=== PATIENT | male | born 1960 | race Caucasian/White ===

== ENCOUNTER 2016-05-22 12:41 | Inpatient (IN) ==
[2016-05-22] MEDS ORDERED: methylPREDNISolone 125 MG/2 ML VIAL IVP ONE (13:00)
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
[2016-05-22 13:18] LABS: ABG Base Excess 3.8 mEq/L (-2.0 to 3.0); ABG HCO3 30.2 mEQ/L (21-27); ABG Oxygen Saturation 97 % (95-98); ABG PCO2 51 mmHg (35-45); ABG PH 7.38 pH Units (7.32-7.45); ABG PO2 93 mmHg (85-104); ABG TCO2 31.8 mEq/L (20-26)
[2016-05-22 13:19] LABS: Blood Gas FiO2 28 %
[2016-05-22] MEDS: Ipratropium/Albuterol Neb 3 ML IH ONE ×2 (13:19→13:21)
[2016-05-22 13:49] LABS: Basophils % 0.1 %; Eosinophils % 0.2 %; Hematocrit 45.8 % (37.5-50.1); Hemoglobin 15.9 g/dL (12.9-16.9); Immature Granulocytes % 0.3 % (0-4); Immature Platelets 3.8 % (1.1-6.1); Lymphocytes # 0.5 K/mcL (0.6-4.6); Lymphocytes % 5.5 %; Mean Corpuscular HGB Conc 34.7 g/dL (31.6-35.5); Mean Corpuscular Hemoglobin 31.3 pg (28.0-33.3); Mean Corpuscular Volume 90.2 fL (83.0-100.0); Mean Platelet Volume 10.5 fL (9.4-12.4); Monocytes # 0.8 K/mcL (0.0-1.3); Neutrophils # 8.4 K/mcL (1.6-8.9); Platelet Count 138 K/mcL (140-400); Red Blood Count 5.08 M/mcL (4.19-5.50); Red Cell Distribution Width 13.5 % (11.5-14.5); Segmented Neutrophils % 85.9 %
[2016-05-22 13:54] LABS: INR 1.1; Prothrombin Time 12.4 Seconds (9.4-12.1)
[2016-05-22 14:01] LABS: BUN/Creatinine Ratio 16 (6-26); Blood Urea Nitrogen 14 mg/dL (8-26); Calcium 9.2 mg/dL (8.6-10.8); Carbon Dioxide 24 mEq/L (19-29); Chloride 103 mEq/L (98-109); Glucose 114 mg/dL (70-99); Osmolality,Calculated 289 (280-300); Potassium 4.1 mEq/L (3.5-4.5); Sodium 139 mEq/L (136-145); eGFR For African Americans > 60 (> 60); eGFR For Non-African Americans > 60 (> 60)
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
[2016-05-22] MEDS ORDERED: Naloxone 0.4 MG/ML INJ IVP PRN ×2 (17:54→17:58)
[2016-05-22] MEDS ORDERED: Ondansetron ODT 4 MG TAB.RAPDIS SL PRN (17:58)
[2016-05-22] MEDS ORDERED: 0.9 % Sodium Chloride 1,000 ML IVC SCH ×2 (18:00→18:55)
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
[2016-05-22] MEDS: methylPREDNISolone 125 MG/2 ML VIAL IVP SCH (19:42)
[2016-05-22] MEDS: *HR* OxyCODONE Immed Rel 5 MG TABLET PO PRN (19:42)
[2016-05-22] MEDS: Azithromycin 500 MG in D5% in Water 250 ML IVPB SCH (19:43)
[2016-05-22] MEDS: Ipratropium/Albuterol Neb 3 ML IH SCH ×2 (20:57→23:52)
[2016-05-22] MEDS ORDERED: MethylPREDNISolone 40 MG/ML VIAL IVP SCH (21:00)
[2016-05-22] MEDS: *HR* Heparin 5,000 UNIT/ML VIAL SQ SCH (23:41)
[2016-05-23] MEDS: Ipratropium/Albuterol Neb 3 ML IH SCH ×5 (03:58→21:42)
[2016-05-23] MEDS: *HR* OxyCODONE Immed Rel 5 MG TABLET PO PRN ×4 (04:41→23:21)
[2016-05-23] MEDS: methylPREDNISolone 125 MG/2 ML VIAL IVP SCH ×3 (04:41→23:08)
[2016-05-23 05:58] LABS: Hematocrit 46.3 % (37.5-50.1); Hemoglobin 15.9 g/dL (12.9-16.9); Immature Granulocytes % 0.5 % (0-4); Lymphocytes # 0.4 K/mcL (0.6-4.6); Lymphocytes % 4.5 %; Mean Corpuscular HGB Conc 34.3 g/dL (31.6-35.5); Mean Corpuscular Volume 90.3 fL (83.0-100.0); Mean Platelet Volume 10.6 fL (9.4-12.4); Monocytes # 0.2 K/mcL (0.0-1.3); Monocytes % 2.5 %; Neutrophils # 8.9 K/mcL (1.6-8.9); Platelet Count 152 K/mcL (140-400); Red Blood Count 5.13 M/mcL (4.19-5.50); Red Cell Distribution Width 13.6 % (11.5-14.5); Segmented Neutrophils % 92.5 %
[2016-05-23 06:06] LABS: BUN/Creatinine Ratio 20 (6-26); Blood Urea Nitrogen 17 mg/dL (8-26); Calcium 9.4 mg/dL (8.6-10.8); Carbon Dioxide 25 mEq/L (19-29); Chloride 105 mEq/L (98-109); Chol/HDL Ratio 4.5 (0-4.9); Cholesterol 213 mg/dL (< 200); Glucose 153 mg/dL (70-99); HDL Cholesterol 47 mg/dL (40-59); LDL Cholesterol,Calculated 144 mg/dL (0-99); Magnesium 2.3 mg/dL (1.6-2.6); Osmolality,Calculated 291 (280-300); Potassium 4.4 mEq/L (3.5-4.5); Sodium 138 mEq/L (136-145); Triglycerides 109 mg/dL (< 150); eGFR For African Americans > 60 (> 60); eGFR For Non-African Americans > 60 (> 60)
--- NOTE | 2016-05-23 08:28 | Event Note ---
Date of Encounter: 05/23/16 Time of Encounter: 08:26 I examined this patient and my medical decision-making was reviewed with Dr. Breaux. I agree with the documented findings, disposition and treatment plan as described except to the extent set forth below. 54-year-old male admitted for COPD exacerbation yesterday evening. Placed on BiPAP, steroids and antibiotics. Today, patient stated that his shortness of breath is mildly better. He continues to report cough, sputum production or wheezing. Examination reveals diffuse wheezing bilaterally. Crepitations in the right lower lung. Scar over the right infrascapular region. Obese abdomen but nontender to palpation. 1. COPD exacerbation-continue intravenous steroids, BiPAP support around the clock, antibiotics and breathing treatments [id number]. Mucolytics. 2. Acute on chronic hypoxic and hypercapnic respiratory failure-oxygen support and BiPAP support for now. Due to COPD exacerbation. Treatment as above. 3. Obesity 4. Tobacco abuse 5. Hypertension 6. Dysrhythmia 7. GERD Patient is high risk due to COPD exacerbation and the need for BiPAP support. Patient is a risk of worsening respiratory failure that may require intervention and mechanical ventilation. CHINTAN Esqueda
[2016-05-23] MEDS ORDERED: amLODIPine 5 MG TABLET PO SCH (09:00)
[2016-05-23] MEDS: *HR* Heparin 5,000 UNIT/ML VIAL SQ SCH ×2 (10:19→17:14)
[2016-05-23] MEDS: Gabapentin 300 MG CAPSULE PO SCH (10:19)
[2016-05-23] MEDS: Furosemide 40 MG/4 ML VIAL IVP SCH ×2 (13:55→17:14)
[2016-05-23 15:44] LABS: Adenovirus Not Detected (Not Detect); Bordetella Pertussis Not Detected (Not Detect); Chlamydophila pneumoniae Not Detected (Not Detect); Coronavirus 229E Not Detected (Not Detect); Coronavirus HKU1 Not Detected (Not Detect); Coronavirus NL63 Not Detected (Not Detect); Coronavirus OC43 Not Detected (Not Detect); Human Metapneumovirus Not Detected (Not Detect); Human Rhinovirus/Enterovirus ***DETECTED*** (Not Detect); Influenza A Subtype 2009 H1 Not Detected (Not Detect); Influenza A Untypeable Not Detected (Not Detect); Influenza B Not Detected (Not Detect); Mycoplasma pneumoniae Not Detected (Not Detect); Parainfluenza Virus 1 Not Detected (Not Detect); Parainfluenza Virus 2 Not Detected (Not Detect); Parainfluenza Virus 3 Not Detected (Not Detect); Parainfluenza Virus 4 Not Detected (Not Detect); Respiratory Syncytial Virus Not Detected (Not Detect)
--- NOTE | 2016-05-23 16:31 | Internal Med Progress Note ---
Date of Encounter: 05/23/16 Time of Encounter: 16:27 - Assessment and plan (1) Acute on chronic respiratory failure with hypoxia Current Visit: Yes Status: Acute Assessment and plan: Pt. continues to have increased work of breathing using accessory muscles with tachypnea and tachycardia. Pt. continues to require 4L O2 to maintain O2 sat >90% BiPAP was initially ordered to be 14/8. Was switched to 12/6 by resp therapy. Has since been set back to 14/8. Non compliance is an issue with this patient. At bedside was recommended to patient to continue to use BiPAP. Continue IV steroids Continue Azithromycin Discontinue IV fluids Patient appears to also have some fluid overload. Lasix 40mg IV BID. (2) Acute exacerbation of chronic obstructive airways disease Current Visit: Yes Status: Acute Assessment and plan: hx of COPD. Not taking home COPD puffers as he cannot afford them. Respiratory panel IV steroids and Abx DuoNebs (3) HTN (hypertension) Current Visit: No Status: Chronic Assessment and plan: Stable Cont. 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: Chronic Assessment and plan: stable Qualifiers: Encounter type: initial encounter Qualified Code(s): S98.911A - Complete traumatic amputation of right foot, level unspecified, initial encounter; S98.912A - Complete traumatic amputation of left foot, level unspecified, initial encounter (5) Hypercholesteremia Current Visit: No Status: Chronic Assessment and plan: continue home meds (6) Tobacco abuse Current Visit: No Status: Chronic Assessment and plan: smoking cessation counseling given (7) DVT prophylaxis Current Visit: Yes Status: Acute Assessment and plan: pharmacologic anticoagulation - Subjective Interval history: Patient seen and examined. States he did not sleep last night at all. He was having difficulty breathing. This AM he continues to have respiratory distress and increased work of breathing. He had an order for BiPAP 14/8 but this was changed to 12/6 by respiratory therapy. We have restarted 14/8 BiPAP and recommended to patient to wear mask. He is also diaphoretic and tachycardic. O2 as necessary to keep o2 sat >90%. NO other complaints at this time. Denies n /v/d/abd pain. - Constitutional Vitals: Temp Pulse Resp BP Pulse Ox 97.5 F L 91 16 142/85 91 L 05/23/16 15:27 05/23/16 15:27 05/23/16 15:27 05/23/16 15:27 05/23/16 15:27 General appearance: Present: cooperative, mild distress, A&O X 3, pleasant, obese - Head Head exam: Present: atraumatic, normocephalic - Eye Eye exam: Present: PERRL, conjuntiva pink, sclera anicteric Pupils: Present: PERRL - Neck Neck exam general surgery: Present: supple, trachea midline. Absent: lymphadenopathy - Respiratory Respiratory exam: Present: decreased breath sounds, prolonged expiratory phase, respiratory distress, rhonchi, wheezes. Absent: CTAB, rales - Cardiovascular Cardiovascular exam: Present: RRR, +S1, +S2, tachycardia - GI/Abdominal GI/Abdominal exam: Present: normal bowel sounds, soft, no peritoneal signs. Absent: distended, tenderness - Extremities Exam Extremities exam: Present: warm, radial pulses palpable and symetrical. Absent : calf tenderness, cyanotic, normal inspection (b/l LE distal foot amputation), pedal edema - Neurological Exam Neurological exam: Present: alert, CN II-XII intact, oriented X3, no focal deficits. Absent: facial droop, speech deficit - Skin Skin exam: Present: dry, intact Internal Medicine: Result - Labs CBC & Chem 7: 05/23/16 05:16 05/23/16 05:16 - ABG Interpretation ABG results: ABG ABG pH 7.38 pH Units (7.32-7.45) 05/22/16 13:14 ABG pCO2 51 mmHg (35-45) H 05/22/16 13:14 ABG pO2 93 mmHg (85-104) 05/22/16 13:14 ABG O2 Saturation 97 % (95-98) 05/22/16 13:14 PT/INR, D-dimer PT 12.4 Seconds (9.4-12.1) H 05/22/16 13:21 Consult Discharge Plan - Plan Referrals: Le,Jem Roberts MD [Primary Care Provider] -
[2016-05-23] MEDS: Azithromycin 500 MG in D5% in Water 250 ML IVPB SCH (23:08)
[2016-05-24] MEDS: Ipratropium/Albuterol Neb 3 ML IH SCH ×6 (00:02→21:06)
[2016-05-24 05:20] LABS: Basophils % 0.1 %; Hematocrit 44.7 % (37.5-50.1); Immature Granulocytes % 0.3 % (0-4); Lymphocytes # 0.5 K/mcL (0.6-4.6); Lymphocytes % 3.2 %; Mean Corpuscular HGB Conc 33.6 g/dL (31.6-35.5); Mean Corpuscular Hemoglobin 30.9 pg (28.0-33.3); Mean Corpuscular Volume 92.2 fL (83.0-100.0); Mean Platelet Volume 10.6 fL (9.4-12.4); Monocytes # 0.7 K/mcL (0.0-1.3); Monocytes % 4.3 %; Neutrophils # 13.9 K/mcL (1.6-8.9); Platelet Count 159 K/mcL (140-400); Red Blood Count 4.85 M/mcL (4.19-5.50); Segmented Neutrophils % 92.1 %
[2016-05-24 05:38] LABS: Magnesium 2.3 mg/dL (1.6-2.6); Potassium 4.6 mEq/L (3.5-4.5)
[2016-05-24] MEDS: *HR* Heparin 5,000 UNIT/ML VIAL SQ SCH ×3 (06:14→16:45)
[2016-05-24] MEDS: methylPREDNISolone 125 MG/2 ML VIAL IVP SCH ×3 (06:20→20:38)
[2016-05-24] MEDS: *HR* OxyCODONE Immed Rel 5 MG TABLET PO PRN ×3 (06:20→21:47)
[2016-05-24] MEDS ORDERED: 0.9 % Sodium Chloride 1,000 ML IVC SCH ×2 (08:45→16:13)
[2016-05-24] MEDS: Gabapentin 300 MG CAPSULE PO SCH (08:55)
--- NOTE | 2016-05-24 09:22 | Electrocardiograph Report ---
Test Date: 2016-05-22 Pat Name: Cristofer Esqueda Department: 103 Room: 2NE20 Gender: M [employer]ic: : [id number] Requested By: Sven Dumont Order Number: [id number] Reading MD: Mal Blake DO Measurements Intervals [place] Rate: 106 P: 26 TN: 170 QRS: 65 QRSD: 94 T: 58 QT: 334 QTc: 396 Interpretive Statements SINUS TACHYCARDIA NONSPECIFIC T-WAVE ABNORMALITY ABNORMAL RHYTHM ECG Electronically Signed On 05-24-16 07:48:29 EST by Mal Blake DO
--- NOTE | 2016-05-24 10:07 | Internal Med Progress Note ---
<Kalpesh Breaux - Last Filed: 05/24/16 10:04> Date of Encounter: 05/24/16 Time of Encounter: 10:05 - Assessment and plan (1) Acute on chronic respiratory failure with hypoxia Current Visit: Yes Status: Acute Assessment and plan: Pt. appears to be only slightly improved from yesterday. Pt. continues to require 4L O2 to maintain O2 sat >90% Non compliance is an issue with this patient. At bedside was recommended to patient to continue to use BiPAP. Respiratory panel revealed entero/rhino virus. Droplet precautions ordered. WBC increased to 15.1 from 9.6 yesterday. He has been getting IV steroids. Tachycardia and tachypnea are currently resolved. Hypotensive at 95/64 this am. NS IVF restarted at 100ml/hr. Lasix, NICO, amlodopine held. Continue IV steroids Continue Azithromycin Chest CT pending (2) Acute exacerbation of chronic obstructive airways disease Current Visit: Yes Status: Acute Assessment and plan: hx of COPD. Not taking home COPD puffers as he cannot afford them. Respiratory panel -- entero/rhino virus positive IV steroids and Abx DuoNebs (3) Hypotension Current Visit: Yes Status: Acute Assessment and plan: Pt. became hypotensive last night with BP 80's-90's/50's-60's Hold home HTN meds, Lasix, and will start 1L NS IVF @100 ml/hr Qualifiers: Hypotension type: unspecified hypotension type Qualified Code(s): I95.9 - Hypotension, unspecified (4) ANGY (acute kidney injury) Current Visit: Yes Status: Acute Assessment and plan: After starting lasix yesterday for diuresis Scr bumped from 0.84-2.67. Bun 17-37 Hydrate with IVF, stop lasix. US Retroperitoneal r/o obstructive uropathy. (5) HTN (hypertension) Current Visit: No Status: Chronic Assessment and plan: Pt. became hypotensive today with home meds, IV Lasix, and D/c'ing fluids. Will hold home meds, DC lasix, and start 1L NS at 100ml/hr. Qualifiers: Hypertension type: essential hypertension Qualified Code(s): I10 - Essential (primary) hypertension (6) Amputation foot, bilat Current Visit: No Status: Chronic Assessment and plan: stable Qualifiers: Encounter type: initial encounter Qualified Code(s): S98.911A - Complete traumatic amputation of right foot, level unspecified, initial encounter; S98.912A - Complete traumatic amputation of left foot, level unspecified, initial encounter (7) Hypercholesteremia Current Visit: No Status: Chronic Assessment and plan: continue home meds (8) Tobacco abuse Current Visit: No Status: Chronic Assessment and plan: smoking cessation counseling given (9) DVT prophylaxis Current Visit: Yes Status: Acute Assessment and plan: pharmacologic anticoagulation - Subjective Interval history: Patient seen and examined. States he did not sleep last night at all. He is continuing to have difficulty breathing. States his breathing is about the same as it was yesterday. Respiratory panel positive for entero/rhino virus. Droplet precautions started. Patient was hypotensive this am without dizziness. Denies n/v/d/abd pain. - Constitutional Vitals: Temp Pulse Resp BP Pulse Ox 97.7 F 82 15 95/64 93 L 05/24/16 07:15 05/24/16 07:15 05/24/16 07:15 05/24/16 07:15 05/24/16 07:15 General appearance: Present: cooperative, mild distress, A&O X 3, pleasant, obese - Head Head exam: Present: atraumatic, normocephalic - Eye Eye exam: Present: PERRL, conjuntiva pink, sclera anicteric Pupils: Present: PERRL - Neck Neck exam general surgery: Present: supple, trachea midline. Absent: lymphadenopathy - Respiratory Respiratory exam: Present: decreased breath sounds, prolonged expiratory phase, respiratory distress, rhonchi, wheezes. Absent: CTAB, rales, stridor - Cardiovascular Cardiovascular exam: Present: RRR, +S1, +S2 - GI/Abdominal GI/Abdominal exam: Present: normal bowel sounds, soft, no peritoneal signs. Absent: distended, tenderness - Extremities Exam Extremities exam: Present: warm, radial pulses palpable and symetrical. Absent : calf tenderness, cyanotic, pedal edema - Neurological Exam Neurological exam: Present: CN II-XII intact, oriented X3, no focal deficits. Absent: facial droop, speech deficit - Skin Skin exam: Present: dry, intact Internal Medicine: Result - Labs CBC & Chem 7: 05/24/16 04:36 05/24/16 04:36 Labs: Short CBC 05/24/16 Range/Units 04:36 WBC 15.1 H D (4.3-11.1) K/mcL Hgb 15.0 (12.9-16.9) g/dL Hct 44.7 (37.5-50.1) % Plt Count 159 (140-400) K/mcL Neutrophils # 13.9 H (1.6-8.9) K/mcL BMP 05/24/16 04:36 Sodium 137 Potassium 4.6 H Chloride 100 Carbon Dioxide 26 BUN 37 H D Creatinine 2.67 H D Glucose 126 H Calcium 9.0 - ABG Interpretation ABG results: ABG ABG pH 7.38 pH Units (7.32-7.45) 05/22/16 13:14 ABG pCO2 51 mmHg (35-45) H 05/22/16 13:14 ABG pO2 93 mmHg (85-104) 05/22/16 13:14 ABG O2 Saturation 97 % (95-98) 05/22/16 13:14 PT/INR, D-dimer PT 12.4 Seconds (9.4-12.1) H 05/22/16 13:21 - Impressions Impressions Chest CT 05/24/16 09:30 IMPRESSION: Stable small indistinct ground-glass opacities within the left upper lobe. A couple new foci of ill-defined ground-glass densities are noted within the right upper lobe. There has been resolution of the small left lower lobe ground-glass opacity. These changes are suggestive of inflammatory/infectious process. 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 D/ / 05/24/2016 09:56:10 Yefri Gómez MD / Leonor Breaux Interpreting Provider: Yefri Gómez MD Consult Discharge Plan - Plan Referrals: Jem Le MD [Primary Care Provider] - <Dusty Saha - Last Filed: 05/24/16 14:33> Date of Encounter: 05/24/16 - Constitutional Vitals: Temp Pulse Resp BP Pulse Ox 97.6 F 79 16 99/57 91 L 05/24/16 11:40 05/24/16 11:40 05/24/16 11:40 05/24/16 11:40 05/24/16 11:40 Internal Medicine: Result - Labs CBC & Chem 7: 05/24/16 04:36 05/24/16 04:36 Labs: Short CBC 05/24/16 Range/Units 04:36 WBC 15.1 H D (4.3-11.1) K/mcL Hgb 15.0 (12.9-16.9) g/dL Hct 44.7 (37.5-50.1) % Plt Count 159 (140-400) K/mcL Neutrophils # 13.9 H (1.6-8.9) K/mcL BMP 05/24/16 04:36 Sodium 137 Potassium 4.6 H Chloride 100 Carbon Dioxide 26 BUN 37 H D Creatinine 2.67 H D Glucose 126 H Calcium 9.0 - ABG Interpretation ABG results: ABG ABG pH 7.38 pH Units (7.32-7.45) 05/22/16 13:14 ABG pCO2 51 mmHg (35-45) H 05/22/16 13:14 ABG pO2 93 mmHg (85-104) 05/22/16 13:14 ABG O2 Saturation 97 % (95-98) 05/22/16 13:14 PT/INR, D-dimer PT 12.4 Seconds (9.4-12.1) H 05/22/16 13:21 - Impressions Impressions Chest CT 05/24/16 09:30 IMPRESSION: Stable small indistinct ground-glass opacities within the left upper lobe. A couple new foci of ill-defined ground-glass densities are noted within the right upper lobe. There has been resolution of the small left lower lobe ground-glass opacity. These changes are suggestive of inflammatory/infectious process. 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 D/ / 05/24/2016 09:56:10 Yefri Gómez MD / Leonor Breaux Interpreting Provider: Yefri Gómez MD - Attending Attestation I examined this patient and my medical decision-making was reviewed with Dr. Breaux. I agree with the documented findings, disposition and treatment plan as described except to the extent set forth below. Patient had hypotension overnight. States that his breathing is the same. He continues to have cough and sputum production. Examination reveals diffuse bilateral wheezing. Air entry better compared to yesterday. Mild respiratory distress and reduced accessory muscle use. Labs reviewed-acute kidney injury and leukocytosis. CT scan of the chest personally reviewed-bilateral upper lobe groundglass opacities. 1. Acute exacerbation of COPD-steroids, antibiotics, BiPAP support and oxygen supplementation. 2. Acute hypoxic respiratory failure-as above. 3. Acute kidney injury-likely acute tubular necrosis due to combination of hypotension, diuretics and lisinopril. Lisinopril and diuretics discontinued. Intravenous fluids. Avoid nephrotoxic agents and hypotension. Monitor renal function and urine output. 4. Hypertension. Patient is high risk due to risk of worsening respiratory failure and new onset acute kidney injury and the need for close monitoring and intravenous fluids and intravenous antibiotics and steroids. Dusty Saha MD
[2016-05-24] MEDS: Budesonide/Formoterol 160/4.5 MDI IH SCH ×2 (13:52→21:06)
[2016-05-24 16:02] LABS: Basophils % 0.1 %; Hematocrit 43.2 % (37.5-50.1); Hemoglobin 14.8 g/dL (12.9-16.9); Immature Granulocytes % 0.7 % (0-4); Lymphocytes # 0.4 K/mcL (0.6-4.6); Lymphocytes % 2.5 %; Mean Corpuscular HGB Conc 34.3 g/dL (31.6-35.5); Mean Corpuscular Hemoglobin 31.2 pg (28.0-33.3); Mean Corpuscular Volume 90.9 fL (83.0-100.0); Mean Platelet Volume 10.3 fL (9.4-12.4); Monocytes # 0.7 K/mcL (0.0-1.3); Neutrophils # 15.4 K/mcL (1.6-8.9); Platelet Count 170 K/mcL (140-400); Red Blood Count 4.75 M/mcL (4.19-5.50); Red Cell Distribution Width 13.9 % (11.5-14.5); Segmented Neutrophils % 92.7 %
[2016-05-24 16:20] LABS: Calcium 8.7 mg/dL (8.6-10.8); Potassium 4.3 mEq/L (3.5-4.5)
[2016-05-24] MEDS: Azithromycin 500 MG in D5% in Water 250 ML IVPB SCH (20:38)
[2016-05-25] MEDS: *HR* Heparin 5,000 UNIT/ML VIAL SQ SCH ×4 (00:41→23:50)
[2016-05-25] MEDS: Ipratropium/Albuterol Neb 3 ML IH SCH ×7 (00:52→23:58)
[2016-05-25] MEDS: methylPREDNISolone 125 MG/2 ML VIAL IVP SCH ×3 (04:57→20:24)
[2016-05-25] MEDS: *HR* OxyCODONE Immed Rel 5 MG TABLET PO PRN ×3 (05:00→22:38)
[2016-05-25 05:08] LABS: Basophils % 0.1 %; Hematocrit 42.6 % (37.5-50.1); Hemoglobin 14.3 g/dL (12.9-16.9); Immature Granulocytes % 0.6 % (0-4); Lymphocytes # 0.4 K/mcL (0.6-4.6); Lymphocytes % 4.3 %; Mean Corpuscular HGB Conc 33.6 g/dL (31.6-35.5); Mean Corpuscular Volume 92.4 fL (83.0-100.0); Mean Platelet Volume 10.8 fL (9.4-12.4); Monocytes # 0.3 K/mcL (0.0-1.3); Monocytes % 2.8 %; Neutrophils # 8.2 K/mcL (1.6-8.9); Platelet Count 137 K/mcL (140-400); Red Blood Count 4.61 M/mcL (4.19-5.50); Red Cell Distribution Width 13.6 % (11.5-14.5); Segmented Neutrophils % 92.2 %
[2016-05-25 05:26] LABS: Calcium 8.4 mg/dL (8.6-10.8); Magnesium 2.3 mg/dL (1.6-2.6)
[2016-05-25] MEDS: Budesonide/Formoterol 160/4.5 MDI IH SCH ×2 (07:25→20:10)
[2016-05-25] MEDS: Gabapentin 300 MG CAPSULE PO SCH (07:59)
--- NOTE | 2016-05-25 09:27 | Internal Med Progress Note ---
Date of Encounter: 05/25/16 Time of Encounter: 09:25 - Assessment and plan (1) Acute on chronic respiratory failure with hypoxia Current Visit: Yes Status: Acute Assessment and plan: Pt. appears to be improved from yesterday. O2 weaned to 3L NC. Currently satting 92% on 3L Non compliance is an issue with this patient. At bedside was recommended to patient to continue to use BiPAP. Respiratory panel revealed entero/rhino virus. Droplet precautions ordered. WBC 8.9 He has been getting IV steroids. Chest CT yesterday. Ground glass opacities, likely d/t inflammatory/infectious process located in right upper lobe/left upper lobe. Rocephin 1G IV q24 added for better coverage. Continue BiPAP 14/8 Continue DuoNebs q6h Continue IV steroids Continue Azithromycin Chest CT 05/24/16 09:30 IMPRESSION: Stable small indistinct ground-glass opacities within the left upper lobe. A couple new foci of ill-defined ground-glass densities are noted within the right upper lobe. There has been resolution of the small left lower lobe ground-glass opacity. These changes are suggestive of inflammatory/infectious process. 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 D/ / 05/24/2016 09:56:10 Yefri Gómez MD / Leonor Breaux Interpreting Provider: Yefri Gómez MD (2) Acute exacerbation of chronic obstructive airways disease Current Visit: Yes Status: Acute Assessment and plan: hx of COPD. Not taking home COPD puffers as he cannot afford them. 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 Needs to be discharged with Advair or Symbicort, Levalbuterol, and Incruse Ellipta Respiratory panel -- entero/rhino virus positive-- droplet precautions. IV steroids and Abx DuoNebs (3) Hypotension Current Visit: Yes Status: Resolved Assessment and plan: No other hypotensive events since yesterday when we d/c'd lasix, norvasc, and Zestril, along with NS IVF @100ml/hr Continue to hold home HTN meds and Lasix. IVF decreasd to 50ml/hr as patient is eating and drinking well. Vital Signs Temperature 97.5 F L 05/22/16 12:47 Pulse Rate 108 05/22/16 12:47 Respiratory Rate 26 05/22/16 12:47 Blood Pressure 127/76 05/22/16 12:47 O2 Sat by Pulse Oximetry 85 L 05/22/16 12:47 Temperature 97.7 F 05/25/16 07:41 Pulse Rate 75 05/25/16 07:41 Respiratory Rate 16 05/25/16 07:41 Blood Pressure 127/79 05/25/16 07:41 O2 Sat by Pulse Oximetry 95 05/25/16 07:41 Oxygen Delivery Oxygen Delivery Nasal Cannula Qualifiers: Hypotension type: unspecified hypotension type Qualified Code(s): I95.9 - Hypotension, unspecified (4) ANGY (acute kidney injury) Current Visit: Yes Status: Acute Assessment and plan: Creatinine improved today. Down to 1.5 from 2.38 yesterday. Continue to hold lasix. Continue IVF NS @50ml/hr US Retroperitoneal r/o obstructive uropathy. Was negative. Retroperitoneum Ultrasound 05/24/16 14:00 IMPRESSION: Unremarkable ultrasound of the kidneys. No obstructive uropathy. Elevated postvoid residual volume of 109 mL. D/ / Saad Carbone MD / Saad Carbone MD Interpreting Provider: Saad Carbone MD (5) HTN (hypertension) Current Visit: No Status: Chronic Assessment and plan: Hold home meds Qualifiers: Hypertension type: essential hypertension Qualified Code(s): I10 - Essential (primary) hypertension (6) Amputation foot, bilat Current Visit: No Status: Chronic Assessment and plan: stable Qualifiers: Encounter type: initial encounter Qualified Code(s): S98.911A - Complete traumatic amputation of right foot, level unspecified, initial encounter; S98.912A - Complete traumatic amputation of left foot, level unspecified, initial encounter (7) Hypercholesteremia Current Visit: No Status: Chronic Assessment and plan: continue home meds (8) Tobacco abuse Current Visit: No Status: Chronic Assessment and plan: smoking cessation counseling given (9) DVT prophylaxis Current Visit: Yes Status: Acute Assessment and plan: pharmacologic anticoagulation - Subjective Interval history: Patient seen and examined. Slept ok. Able to breath a little easier today. Able to eat and has appetite, drinking fluids. O2 weaned to 3L NC today. Pt. tolerating well with o2 sat 92% No CP. Denies n/v/d/abd pain. - Constitutional Vitals: Temp Pulse Resp BP Pulse Ox 97.7 F 75 16 127/79 95 05/25/16 07:41 05/25/16 07:41 05/25/16 07:41 05/25/16 07:41 05/25/16 07:41 General appearance: Present: cooperative, mild distress, A&O X 3, pleasant, obese - Head Head exam: Present: atraumatic, normocephalic. Absent: normal inspection (face red) - Eye Eye exam: Present: PERRL, conjuntiva pink, sclera anicteric Pupils: Present: PERRL - Neck Neck exam general surgery: Present: supple, trachea midline. Absent: lymphadenopathy - Respiratory Respiratory exam: Present: accessory muscle use, rales (left lung base), rhonchi, wheezes (diffuse). Absent: CTAB, tachypnea - Cardiovascular Cardiovascular exam: Present: RRR, +S1, +S2. Absent: diastolic murmur, gallop, rubs, systolic murmur - GI/Abdominal GI/Abdominal exam: Present: normal bowel sounds, soft, no peritoneal signs. Absent: distended, tenderness - Extremities Exam Extremities exam: Present: warm, radial pulses palpable and symetrical. Absent : calf tenderness, cyanotic, normal inspection (b/l le distal foot amputations) , pedal edema - Neurological Exam Neurological exam: Present: CN II-XII intact, oriented X3, no focal deficits. Absent: facial droop, speech deficit - Skin Skin exam: Present: dry, intact Internal Medicine: Result - Labs CBC & Chem 7: 05/25/16 04:20 05/25/16 04:20 Labs: Short CBC 05/24/16 05/25/16 Range/Units 15:52 04:20 WBC 16.7 H 8.9 (4.3-11.1) K/mcL Hgb 14.8 14.3 (12.9-16.9) g/dL Hct 43.2 42.6 (37.5-50.1) % Plt Count 170 137 L (140-400) K/mcL Neutrophils # 15.4 H 8.2 (1.6-8.9) K/mcL BMP 05/24/16 05/25/16 15:52 04:20 Sodium 133 L 137 Potassium 4.3 5.0 H Chloride 98 103 Carbon Dioxide 24 26 BUN 48 H D 40 H Creatinine 2.38 H 1.50 H Glucose 123 H 143 H Calcium 8.7 8.4 L - ABG Interpretation ABG results: ABG ABG pH 7.38 pH Units (7.32-7.45) 05/22/16 13:14 ABG pCO2 51 mmHg (35-45) H 05/22/16 13:14 ABG pO2 93 mmHg (85-104) 05/22/16 13:14 ABG O2 Saturation 97 % (95-98) 05/22/16 13:14 PT/INR, D-dimer PT 12.4 Seconds (9.4-12.1) H 05/22/16 13:21 - Impressions Impressions Chest CT 05/24/16 09:30 IMPRESSION: Stable small indistinct ground-glass opacities within the left upper lobe. A couple new foci of ill-defined ground-glass densities are noted within the right upper lobe. There has been resolution of the small left lower lobe ground-glass opacity. These changes are suggestive of inflammatory/infectious process. 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 D/ / 05/24/2016 09:56:10 Yefri Gómez MD / Leonor Breaux Interpreting Provider: Yefri Gómez MD Retroperitoneum Ultrasound 05/24/16 14:00 IMPRESSION: Unremarkable ultrasound of the kidneys. No obstructive uropathy. Elevated postvoid residual volume of 109 mL. D/ / Saad Carbone MD / Saad Carbone MD Interpreting Provider: Saad Carbone MD Consult Discharge Plan - Plan Referrals: Jem Le MD [Primary Care Provider] -
--- NOTE | 2016-05-25 09:47 | Event Note ---
Date of Encounter: 05/25/16 Time of Encounter: 08:30 I examined this patient and my medical decision-making was reviewed with Dr. Breaux. I agree with the documented findings, disposition and treatment plan as described except to the extent set forth below. Patient reports feeling slightly better. Still has SOB when goes off oxygen. Exam - bilateral diffuse wheezing. Obese abdomen. NT. Soft. Labs reviewed. 1. COPD exacerbation 2. Respiratory failure 3. ANGY - improving High risk due to unresolved COPD exacerbation and resp. failure and need for BIPAP support and risk of intubation and mech. ventilation. Dusty Saha MD
[2016-05-25] MEDS: Azithromycin 500 MG in D5% in Water 250 ML IVPB SCH (17:53)
[2016-05-25] MEDS: 0.9 % Sodium Chloride 1,000 ML IVC SCH (22:46)
[2016-05-26] MEDS: Ipratropium/Albuterol Neb 3 ML IH SCH ×6 (04:54→23:12)
[2016-05-26] MEDS: *HR* OxyCODONE Immed Rel 5 MG TABLET PO PRN ×3 (05:07→17:44)
[2016-05-26] MEDS: methylPREDNISolone 125 MG/2 ML VIAL IVP SCH ×3 (05:07→21:37)
[2016-05-26 07:18] LABS: Basophils % 0.1 %; Hematocrit 43.5 % (37.5-50.1); Hemoglobin 14.6 g/dL (12.9-16.9); Immature Granulocytes % 0.9 % (0-4); Lymphocytes # 0.4 K/mcL (0.6-4.6); Lymphocytes % 5.6 %; Mean Corpuscular HGB Conc 33.6 g/dL (31.6-35.5); Mean Corpuscular Hemoglobin 31.4 pg (28.0-33.3); Mean Corpuscular Volume 93.5 fL (83.0-100.0); Mean Platelet Volume 10.4 fL (9.4-12.4); Monocytes # 0.3 K/mcL (0.0-1.3); Platelet Count 134 K/mcL (140-400); Red Blood Count 4.65 M/mcL (4.19-5.50); Red Cell Distribution Width 13.5 % (11.5-14.5); Segmented Neutrophils % 88.4 %
[2016-05-26 07:37] LABS: BUN/Creatinine Ratio 27 (6-26); Calcium 8.7 mg/dL (8.6-10.8); Carbon Dioxide 30 mEq/L (19-29); Chloride 105 mEq/L (98-109); Glucose 131 mg/dL (70-99); Osmolality,Calculated 293 (280-300); Potassium 5.3 mEq/L (3.5-4.5); Sodium 139 mEq/L (136-145); eGFR For African Americans > 60 (> 60); eGFR For Non-African Americans > 60 (> 60)
[2016-05-26 07:38] LABS: Blood Urea Nitrogen 23 mg/dL (8-26)
[2016-05-26] MEDS: Budesonide/Formoterol 160/4.5 MDI IH SCH ×2 (07:57→19:43)
[2016-05-26] MEDS: 0.9 % Sodium Chloride 1,000 ML IVC SCH ×2 (08:28→17:43)
[2016-05-26] MEDS: Azithromycin 250 MG TABLET PO SCH (08:32)
[2016-05-26] MEDS: Gabapentin 300 MG CAPSULE PO SCH (08:32)
[2016-05-26] MEDS: *HR* Heparin 5,000 UNIT/ML VIAL SQ SCH ×2 (08:32→16:45)
--- NOTE | 2016-05-26 10:42 | Internal Med Progress Note ---
<BreauxKalpesh Hernández - Last Filed: 05/26/16 12:04> Date of Encounter: 05/26/16 Time of Encounter: 10:40 - Assessment and plan (1) Acute on chronic respiratory failure with hypoxia Current Visit: Yes Status: Acute Assessment and plan: Pt. appears to be slightly improved from yesterday. O2 weaned to 1L NC. Currently satting 90% on 1L Non compliance is an issue with this patient. At bedside was recommended to patient to continue to use BiPAP. Respiratory panel revealed entero/rhino virus. Droplet precautions ordered. WBC: WNL Afebrile, no tachycardia, no tachypnea Continue BiPAP 14/8 as tolerated Continue DuoNebs q6h Continue IV steroids, 60mg solumedrol q8h Continue Azithromycin, Rocephin Repeat CXR: negative Chest CTA: pending Consult to Pulm. Appreciate your input. (2) Acute exacerbation of chronic obstructive airways disease Current Visit: Yes Status: Acute Assessment and plan: hx of COPD. Not taking home COPD puffers as he cannot afford them. 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 Needs to be discharged with Advair or Symbicort, Levalbuterol, and Incruse Ellipta as these are most cost effective for himm. Respiratory panel -- entero/rhino virus positive-- droplet precautions. IV steroids and Abx DuoNebs Titrate O2 sat >90% Pulm consult. Appreciate your input. (3) Hypotension Current Visit: Yes Status: Resolved Assessment and plan: No other hypotensive events since 05/24/16 when we d/c'd lasix, norvasc, and Zestril, along with NS IVF @100ml/hr Continue to hold home HTN meds and Lasix. IVF decreasd to 50ml/hr as patient is eating and drinking well. Vital Signs Temperature 97.5 F L 05/22/16 12:47 Pulse Rate 108 05/22/16 12:47 Respiratory Rate 26 05/22/16 12:47 Blood Pressure 127/76 05/22/16 12:47 O2 Sat by Pulse Oximetry 85 L 05/22/16 12:47 Temperature 97.7 F 05/25/16 07:41 Pulse Rate 75 05/25/16 07:41 Respiratory Rate 16 05/25/16 07:41 Blood Pressure 127/79 05/25/16 07:41 O2 Sat by Pulse Oximetry 95 05/25/16 07:41 Oxygen Delivery Oxygen Delivery Nasal Cannula Qualifiers: Hypotension type: unspecified hypotension type Qualified Code(s): I95.9 - Hypotension, unspecified (4) Hyperkalemia Current Visit: Yes Status: Acute Assessment and plan: HD 3. Pt. developed hyperkalemia. K+ 5.3 today, 5.0 yesterday EKG - NSR, no acute changes Add HCTZ 25 mg PO daily Monitor chem 7 If does not get good response from HCTZ may need Kayxelate (5) ANGY (acute kidney injury) Current Visit: Yes Status: Resolved Assessment and plan: Resolved after D/C lasix and starting IVF (6) HTN (hypertension) Current Visit: No Status: Chronic Assessment and plan: Hold home meds Qualifiers: Hypertension type: essential hypertension Qualified Code(s): I10 - Essential (primary) hypertension (7) Amputation foot, bilat Current Visit: No Status: Chronic Assessment and plan: stable No infectious process noted Qualifiers: Encounter type: initial encounter Qualified Code(s): S98.911A - Complete traumatic amputation of right foot, level unspecified, initial encounter; S98.912A - Complete traumatic amputation of left foot, level unspecified, initial encounter (8) Hypercholesteremia Current Visit: No Status: Chronic Assessment and plan: continue home meds (9) Tobacco abuse Current Visit: No Status: Chronic Assessment and plan: smoking cessation counseling given (10) DVT prophylaxis Current Visit: Yes Status: Acute Assessment and plan: pharmacologic anticoagulation - Subjective Interval history: Patient seen and examined. Slept ok. Breathing about the same as yesterday. Still SOB. Trace chest pain. Able to eat and has appetite, drinking fluids. O2 weaned to 1L NC today. Pt. tolerating well with o2 sat 90% No CP. Denies n /v/d/abd pain. - Constitutional Vitals: Temp Pulse Resp BP Pulse Ox 97.5 F L 68 16 151/66 93 L 05/26/16 07:23 05/26/16 07:23 05/26/16 07:57 05/26/16 07:23 05/26/16 08:46 General appearance: Present: cooperative, mild distress, A&O X 3, pleasant, obese - Head Head exam: Present: atraumatic, normocephalic - Eye Eye exam: Present: PERRL, conjuntiva pink, sclera anicteric Pupils: Present: PERRL - Neck Neck exam general surgery: Present: supple, trachea midline. Absent: lymphadenopathy - Respiratory Respiratory exam: Present: decreased breath sounds, prolonged expiratory phase, rhonchi, wheezes. Absent: CTAB - Cardiovascular Cardiovascular exam: Present: RRR, +S1, +S2 - GI/Abdominal GI/Abdominal exam: Present: normal bowel sounds, soft, no peritoneal signs. Absent: distended, tenderness - Extremities Exam Extremities exam: Present: warm, radial pulses palpable and symetrical. Absent : calf tenderness, cyanotic, normal inspection (b/l distal foot amputation-- no erythema or edema), pedal edema - Neurological Exam Neurological exam: Present: CN II-XII intact, oriented X3, no focal deficits. Absent: facial droop, speech deficit - Skin Skin exam: Present: dry, intact Internal Medicine: Result - Labs CBC & Chem 7: 05/26/16 06:30 05/26/16 06:30 Labs: Short CBC 05/26/16 Range/Units 06:30 WBC 6.7 (4.3-11.1) K/mcL Hgb 14.6 (12.9-16.9) g/dL Hct 43.5 (37.5-50.1) % Plt Count 134 L (140-400) K/mcL Neutrophils # 6.0 (1.6-8.9) K/mcL BMP 05/26/16 06:30 Sodium 139 Potassium 5.3 H Chloride 105 Carbon Dioxide 30 H BUN 23 D Creatinine 0.85 Glucose 131 H Calcium 8.7 - ABG Interpretation ABG results: ABG ABG pH 7.38 pH Units (7.32-7.45) 05/22/16 13:14 ABG pCO2 51 mmHg (35-45) H 05/22/16 13:14 ABG pO2 93 mmHg (85-104) 05/22/16 13:14 ABG O2 Saturation 97 % (95-98) 05/22/16 13:14 PT/INR, D-dimer PT 12.4 Seconds (9.4-12.1) H 05/22/16 13:21 - Impressions Impressions Chest X-Ray 05/26/16 08:56 IMPRESSION: 1. No acute cardiopulmonary disease. 2. Stable elevation of the right hemidiaphragm with adjacent atelectasis. D/ / Chantal Groves MD / Chantal Groves MD Interpreting Provider: Chantal Groves MD Consult Discharge Plan - Plan Referrals: Le,Jem Roberts MD [Primary Care Provider] - <Kalpesh Sahaesh - Last Filed: 05/26/16 12:43> Date of Encounter: 05/26/16 - Constitutional Vitals: Temp Pulse Resp BP Pulse Ox 97.5 F L 68 16 151/66 91 L 05/26/16 07:23 05/26/16 07:23 05/26/16 11:33 05/26/16 07:23 05/26/16 11:33 Internal Medicine: Result - Labs CBC & Chem 7: 05/26/16 06:30 05/26/16 06:30 Labs: Short CBC 05/26/16 Range/Units 06:30 WBC 6.7 (4.3-11.1) K/mcL Hgb 14.6 (12.9-16.9) g/dL Hct 43.5 (37.5-50.1) % Plt Count 134 L (140-400) K/mcL Neutrophils # 6.0 (1.6-8.9) K/mcL BMP 05/26/16 06:30 Sodium 139 Potassium 5.3 H Chloride 105 Carbon Dioxide 30 H BUN 23 D Creatinine 0.85 Glucose 131 H Calcium 8.7 - ABG Interpretation ABG results: ABG ABG pH 7.38 pH Units (7.32-7.45) 05/22/16 13:14 ABG pCO2 51 mmHg (35-45) H 05/22/16 13:14 ABG pO2 93 mmHg (85-104) 05/22/16 13:14 ABG O2 Saturation 97 % (95-98) 05/22/16 13:14 PT/INR, D-dimer PT 12.4 Seconds (9.4-12.1) H 05/22/16 13:21 - Impressions Impressions Chest X-Ray 05/26/16 08:56 IMPRESSION: 1. No acute cardiopulmonary disease. 2. Stable elevation of the right hemidiaphragm with adjacent atelectasis. D/ / 05/26/2016 10:45:37 Chantal Groves MD / hakeem Interpreting Provider: Chantal Groves MD - Attending Attestation I examined this patient and my medical decision-making was reviewed with Dr. Breaux. I agree with the documented findings, disposition and treatment plan as described except to the extent set forth below. Pt. still reports SOB and wheezing. Wheezing on ausculation. 1. COPD exacerbation - Continue current treatment. Steroid, abx and duonebs. 2. Acute on chronic respiratory failure 3. Resolved ANGY High risk due to need for NIPPV and risk of worsening resp. failure and unresolved COPD exacerbation. Dusty Saha MD
[2016-05-26] MEDS: hydroCHLOROthiazide 25 MG TABLET PO SCH (14:21)
[2016-05-26] MEDS ORDERED: Albuterol 2.5 MG/3 ML NEBULIZER IH PRN (14:53)
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
[2016-05-27] MEDS: *HR* OxyCODONE Immed Rel 5 MG TABLET PO PRN ×3 (00:05→17:15)
[2016-05-27] MEDS: *HR* Heparin 5,000 UNIT/ML VIAL SQ SCH ×3 (00:05→17:14)
[2016-05-27] MEDS: Ipratropium/Albuterol Neb 3 ML IH SCH ×5 (03:37→21:12)
[2016-05-27 05:26] LABS: Basophils % 0.3 %; Hematocrit 44.4 % (37.5-50.1); Hemoglobin 15.3 g/dL (12.9-16.9); Lymphocytes # 0.5 K/mcL (0.6-4.6); Lymphocytes % 7.4 %; Mean Corpuscular HGB Conc 34.5 g/dL (31.6-35.5); Mean Corpuscular Hemoglobin 31.5 pg (28.0-33.3); Mean Corpuscular Volume 91.4 fL (83.0-100.0); Mean Platelet Volume 10.9 fL (9.4-12.4); Monocytes # 0.4 K/mcL (0.0-1.3); Monocytes % 5.4 %; Neutrophils # 5.6 K/mcL (1.6-8.9); Platelet Count 122 K/mcL (140-400); Red Blood Count 4.86 M/mcL (4.19-5.50); Segmented Neutrophils % 84.9 %
[2016-05-27] MEDS: methylPREDNISolone 125 MG/2 ML VIAL IVP SCH ×3 (05:34→21:05)
[2016-05-27 05:38] LABS: BUN/Creatinine Ratio 28 (6-26); Blood Urea Nitrogen 26 mg/dL (8-26); Calcium 8.9 mg/dL (8.6-10.8); Carbon Dioxide 28 mEq/L (19-29); Chloride 101 mEq/L (98-109); Glucose 187 mg/dL (70-99); Osmolality,Calculated 294 (280-300); Potassium 4.8 mEq/L (3.5-4.5); Sodium 137 mEq/L (136-145); eGFR For African Americans > 60 (> 60); eGFR For Non-African Americans > 60 (> 60)
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
[2016-05-27] MEDS: hydroCHLOROthiazide 25 MG TABLET PO SCH (09:21)
[2016-05-27] MEDS: Azithromycin 250 MG TABLET PO SCH (09:21)
[2016-05-27] MEDS: Gabapentin 300 MG CAPSULE PO SCH (09:21)
[2016-05-27] MEDS ORDERED: *HR* Labetalol 20 MG/4 ML SYRINGE IVP PRN (09:31)
[2016-05-27] MEDS: Tiotropium 18 MCG inhalation IH SCH (10:28)
[2016-05-27] MEDS: Budesonide/Formoterol 160/4.5 MDI IH SCH ×2 (10:28→21:13)
--- NOTE | 2016-05-27 15:06 | Pulmonology Progress Note ---
Date of Encounter: 05/27/16 Time of Encounter: 15:05 Assessment and Plan (1) Acute and chronic respiratory failure ([id number]) Current Visit: Yes Status: Acute Secondary to COPD exacerbation from Rhinovirus wean FiO2 to keep oxygen saturations greater than 89% to 92% walking pulse ox before discharge as he qualifies for oxygen Encourage out bed to chair as tolerated Incentive spirometry Pulmonary was signed off thank you for allowing us to participate in the care of this patient please call with any questions or change in clinical course. We will be happy to follow this patient in the pulmonary clinic thank you Qualifiers: Respiratory failure complication: hypoxia and hypercapnia Qualified Code(s) : J96.21 - Acute and chronic respiratory failure with hypoxia; J96.22 - Acute and chronic respiratory failure with hypercapnia (2) Acute exacerbation of chronic obstructive airways disease Current Visit: Yes Status: Acute Continues to have interval improvement agree with IV steroids at this time continue bronchodilators can continue metered-dose inhalers which she can be discharged with Transition to by mouth on the next 24-48 hours with plan for two-week taper starting at 40 mg of prednisone Recommend follow-up in pulmonary clinic (3) DVT prophylaxis Current Visit: Yes Status: Acute Continue chemical DVT prophylaxis by inpatient (4) Tobacco abuse Current Visit: No Status: Chronic Patient assures me this is in remission counseled him to remain tobacco free Subjective Principal diagnosis: COPD exacerbation Interval history: Patient slightly improved from yesterday decreased work of breathing denies cough remains afebrile Objective PUL Vital signs: Last Vital Signs Temp 97.5 F L 05/27/16 11:35 Pulse 79 05/27/16 11:35 Resp 15 05/27/16 11:35 BP 160/94 05/27/16 11:35 Pulse Ox 90 L 05/27/16 11:35 General appearance: no acute distress Neck: supple Effort: mildly labored Auscultation: bilateral: diminished breath sounds, wheezes Cardiovascular: regular rate and rhythm Gastrointestinal: normoactive bowel sounds Integumentary: normal normal mental status, non-focal exam Results - Laboratory Findings CBC and BMP: 05/27/16 04:45 05/27/16 04:45 ABG ABG pH 7.38 pH Units (7.32-7.45) 05/22/16 13:14 ABG pCO2 51 mmHg (35-45) H 05/22/16 13:14 ABG pO2 93 mmHg (85-104) 05/22/16 13:14 ABG O2 Saturation 97 % (95-98) 05/22/16 13:14 PT/INR, D-dimer PT 12.4 Seconds (9.4-12.1) H 05/22/16 13:21 Abnormal lab findings: Abnormal lab results Plt Count 122 K/mcL (140-400) L 05/27/16 04:45 Lymphocytes # 0.5 K/mcL (0.6-4.6) L 05/27/16 04:45 PT 12.4 Seconds (9.4-12.1) H 05/22/16 13:21 ABG pCO2 51 mmHg (35-45) H 05/22/16 13:14 ABG HCO3 30.2 mEQ/L (21-27) H 05/22/16 13:14 ABG Total CO2 31.8 mEq/L (20-26) H 05/22/16 13:14 ABG Base Excess 3.8 mEq/L (-2.0 to 3.0) H 05/22/16 13:14 Potassium 4.8 mEq/L (3.5-4.5) H 05/27/16 04:45 BUN/Creatinine Ratio 28 (6-26) H 05/27/16 04:45 Glucose 187 mg/dL (70-99) H 05/27/16 04:45 POC Glucose 220 (58-89) H 05/26/16 20:16 Lactic Acid 2.3 mmol/L (0.5-2.2) H 05/24/16 08:20 Cholesterol 213 mg/dL (< 200) H 05/23/16 05:16 LDL Cholesterol, Calc 144 mg/dL (0-99) H 05/23/16 05:16 Entero/Rhino (PCR) DETECTED (Not Detect) A 05/23/16 14:02 - Microbiology Findings Microbiology Findings: Microbiology, Last 48 Hours 05/24/16 12:19 Blood Culture - Preliminary Peripheral Venipuncture No growth. 05/24/16 12:19 Blood Culture - Preliminary Peripheral Venipuncture No growth. - Clinical Findings Intake & Output: Intake & Output 05/26/16 05/27/16 05/27/16 23:59 07:59 15:59 Intake Total 1100 / 1100 100 / 100 840 / 840 Output Total 460 / 460 1000 / 1000 700 / 700 Balance 640 / 640 -900 / -900 140 / 140 Weight 104.2 kg Consult Discharge Plan - Plan Referrals: Jem Le MD [Primary Care Provider] -
[2016-05-27] MEDS: 0.9 % Sodium Chloride 1,000 ML IVC SCH ×2 (16:39→21:06)
[2016-05-28] MEDS: *HR* Heparin 5,000 UNIT/ML VIAL SQ SCH ×3 (00:30→16:06)
[2016-05-28] MEDS: Ipratropium/Albuterol Neb 3 ML IH SCH ×4 (03:32→21:09)
[2016-05-28] MEDS: *HR* OxyCODONE Immed Rel 5 MG TABLET PO PRN ×3 (03:42→20:27)
[2016-05-28 05:55] LABS: Basophils % 0.5 %; Hematocrit 47.9 % (37.5-50.1); Hemoglobin 16.5 g/dL (12.9-16.9); Immature Granulocytes % 2.4 % (0-4); Lymphocytes # 0.5 K/mcL (0.6-4.6); Lymphocytes % 6.9 %; Mean Corpuscular HGB Conc 34.4 g/dL (31.6-35.5); Mean Corpuscular Hemoglobin 31.1 pg (28.0-33.3); Mean Corpuscular Volume 90.2 fL (83.0-100.0); Mean Platelet Volume 10.8 fL (9.4-12.4); Monocytes # 0.5 K/mcL (0.0-1.3); Monocytes % 6.9 %; Neutrophils # 6.5 K/mcL (1.6-8.9); Nucleated Red Blood Cells 0.3 /100 WBC (0); Platelet Count 143 K/mcL (140-400); Red Blood Count 5.31 M/mcL (4.19-5.50); Red Cell Distribution Width 13.1 % (11.5-14.5); Segmented Neutrophils % 83.3 %
[2016-05-28] MEDS: methylPREDNISolone 125 MG/2 ML VIAL IVP SCH (06:00)
[2016-05-28 06:26] LABS: BUN/Creatinine Ratio 30 (6-26); Blood Urea Nitrogen 28 mg/dL (8-26); Calcium 9.1 mg/dL (8.6-10.8); Carbon Dioxide 25 mEq/L (19-29); Chloride 101 mEq/L (98-109); Glucose 191 mg/dL (70-99); Osmolality,Calculated 293 (280-300); Sodium 136 mEq/L (136-145); eGFR For African Americans > 60 (> 60); eGFR For Non-African Americans > 60 (> 60)
[2016-05-28 06:31] LABS: Potassium 4.9 mEq/L (3.5-4.5)
[2016-05-28] MEDS: hydroCHLOROthiazide 25 MG TABLET PO SCH (09:50)
[2016-05-28] MEDS: Azithromycin 250 MG TABLET PO SCH (09:50)
[2016-05-28] MEDS: Gabapentin 300 MG CAPSULE PO SCH (09:51)
--- NOTE | 2016-05-28 10:25 | Electrocardiograph Report ---
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
[2016-05-28] MEDS: Tiotropium 18 MCG inhalation IH SCH (10:27)
[2016-05-28] MEDS: Budesonide/Formoterol 160/4.5 MDI IH SCH ×2 (10:28→21:09)
--- NOTE | 2016-05-28 11:47 | Internal Med Progress Note ---
<SaeidKalpesh Hernández - Last Filed: 05/28/16 14:04> Date of Encounter: 05/28/16 Time of Encounter: 11:45 - Assessment and plan (1) Acute on chronic respiratory failure with hypoxia Current Visit: Yes Status: Acute Assessment and plan: Pt. appears to be slightly improved from yesterday. O2 weaned to 1L NC. Currently satting 92% on 1L Respiratory panel revealed entero/rhino virus. Droplet precautions ordered. WBC: WNL Continues to be Afebrile, no tachycardia, no tachypnea Continue BiPAP /8 as tolerated Continue DuoNebs q4h Continue IV steroids, 60mg solumedrol q8h Continue Azithromycin Day 4, PO. D/C Rocephin Repeat CXR: negative Wean O2 to keep sats >88% Incentive spiormetry Ambulation Would benefit from walking pulse ox to see if pt. qualifies for home O2 on D/C. Spiriva IH Consult to Pulm. Pulm agrees that this is likely COPD exacerbation likely 2/2 entero/rhino virus (Viral pneumonia) and recommended to d/c rocephin, continue Azithromycin (5 days total), start Spiriva (2) Acute exacerbation of chronic obstructive airways disease Current Visit: Yes Status: Acute Assessment and plan: hx of COPD. Not taking home COPD puffers as he cannot afford them. 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 Needs to be discharged with Advair or Symbicort, Levalbuterol, and Incruse Ellipta as these are most cost effective for him. Respiratory panel -- entero/rhino virus positive-- droplet precautions. IV steroids x 5 days d/c'd today to transition to PO steroids, PO azithromycin ( day5), Albuterol Neb q2h, Spiriva, symbicort, duoneb q6h Titrate O2 sat >90% (3) Hypotension Current Visit: Yes Status: Resolved Assessment and plan: No other hypotensive events since 05/24/16 when we d/c'd lasix, norvasc, and Zestril, along with NS IVF @100ml/hr Continue to hold home HTN meds and Lasix. IVF decreasd to 50ml/hr as patient is eating and drinking well. 05/27/15: 25mg HCTZ started for hyperkalemia with mild BP elevation. Temperature 97.5 F L 05/28/16 07:38 Pulse Rate 82 05/28/16 07:38 Respiratory Rate 16 05/28/16 07:38 Blood Pressure 137/99 05/28/16 07:38 O2 Sat by Pulse Oximetry 95 05/28/16 08:00 Oxygen Delivery Oxygen Delivery Nasal Cannula Qualifiers: Hypotension type: unspecified hypotension type Qualified Code(s): I95.9 - Hypotension, unspecified (4) Hyperkalemia Current Visit: Yes Status: Acute Assessment and plan: HD 3. Pt. developed hyperkalemia. K+ 5.3 today, 5.0 yesterday EKG - NSR, no acute changes Add HCTZ 25 mg PO daily Monitor chem 7 If does not get good response from HCTZ may need Kayxelate HD4: K+ 4.8 Continue HCTZ monitor chem 7 in am HD5: K+ 4.9 (slightly hemolyzed sample) Continue HCTZ chem 7 in am (5) ANGY (acute kidney injury) Current Visit: Yes Status: Resolved Assessment and plan: Resolved after D/C lasix and starting IVF avoid nephrotoxins (6) HTN (hypertension) Current Visit: No Status: Chronic Assessment and plan: Cont. HCTZ 25mg PO qday for HTN and Hyperkalemia Will add BB PRN for BP >200/120 Qualifiers: Hypertension type: essential hypertension Qualified Code(s): I10 - Essential (primary) hypertension (7) Amputation foot, bilat Current Visit: No Status: Chronic Assessment and plan: stable No infectious process noted Qualifiers: Encounter type: initial encounter Qualified Code(s): S98.911A - Complete traumatic amputation of right foot, level unspecified, initial encounter; S98.912A - Complete traumatic amputation of left foot, level unspecified, initial encounter (8) Hypercholesteremia Current Visit: No Status: Chronic Assessment and plan: continue home meds (9) Tobacco abuse Current Visit: No Status: Chronic Assessment and plan: smoking cessation counseling given (10) DVT prophylaxis Current Visit: Yes Status: Acute Assessment and plan: pharmacologic anticoagulation - Subjective Interval history: Patient seen and examined. Slept ok. SOB persists, but improving. Able to eat and has appetite, drinking fluids. O2 weaned to 1L yesterady. Ambulate, incentive spirometry, PO steroids. Denies CP, n/v/d/abd pain. - Constitutional Vitals: Temp Pulse Resp BP Pulse Ox 97.5 F L 82 16 137/99 95 05/28/16 07:38 05/28/16 07:38 05/28/16 07:38 05/28/16 07:38 05/28/16 08:00 General appearance: Present: cooperative, mild distress, A&O X 3, pleasant, obese - Head Head exam: Present: atraumatic, normocephalic - Eye Eye exam: Present: PERRL, conjuntiva pink, sclera anicteric Pupils: Present: PERRL - Neck Neck exam general surgery: Present: supple, trachea midline. Absent: lymphadenopathy - Respiratory Respiratory exam: Present: wheezes - Cardiovascular Cardiovascular exam: Present: RRR, +S1, +S2 - GI/Abdominal GI/Abdominal exam: Present: normal bowel sounds, soft, no peritoneal signs. Absent: distended, tenderness - Extremities Exam Extremities exam: Present: warm, radial pulses palpable and symetrical. Absent : calf tenderness, cyanotic, normal inspection (b/l distal foot amputation), pedal edema - Neurological Exam Neurological exam: Present: CN II-XII intact, oriented X3, no focal deficits. Absent: facial droop, speech deficit - Skin Skin exam: Present: dry, intact Internal Medicine: Result - Labs CBC & Chem 7: 05/28/16 04:48 05/28/16 04:48 Labs: Short CBC 05/28/16 Range/Units 04:48 WBC 7.8 (4.3-11.1) K/mcL Hgb 16.5 (12.9-16.9) g/dL Hct 47.9 (37.5-50.1) % Plt Count 143 (140-400) K/mcL Neutrophils # 6.5 (1.6-8.9) K/mcL BMP 05/28/16 04:48 Sodium 136 Potassium 4.9 H Chloride 101 Carbon Dioxide 25 BUN 28 H Creatinine 0.93 Glucose 191 H Calcium 9.1 - ABG Interpretation ABG results: ABG ABG pH 7.38 pH Units (7.32-7.45) 05/22/16 13:14 ABG pCO2 51 mmHg (35-45) H 05/22/16 13:14 ABG pO2 93 mmHg (85-104) 05/22/16 13:14 ABG O2 Saturation 97 % (95-98) 05/22/16 13:14 PT/INR, D-dimer PT 12.4 Seconds (9.4-12.1) H 05/22/16 13:21 Consult Discharge Plan - Plan Referrals: Le,Jem Roberts MD [Primary Care Provider] - <Lyly Mccarty - Last Filed: 05/28/16 19:06> Date of Encounter: 05/28/16 - Constitutional Vitals: Temp Pulse Resp BP Pulse Ox 97.7 F 71 18 137/99 96 05/28/16 15:36 05/28/16 15:36 05/28/16 16:14 05/28/16 07:38 05/28/16 16:14 Internal Medicine: Result - Labs CBC & Chem 7: 05/28/16 04:48 05/28/16 04:48 Labs: Short CBC 05/28/16 Range/Units 04:48 WBC 7.8 (4.3-11.1) K/mcL Hgb 16.5 (12.9-16.9) g/dL Hct 47.9 (37.5-50.1) % Plt Count 143 (140-400) K/mcL Neutrophils # 6.5 (1.6-8.9) K/mcL BMP 05/28/16 04:48 Sodium 136 Potassium 4.9 H Chloride 101 Carbon Dioxide 25 BUN 28 H Creatinine 0.93 Glucose 191 H Calcium 9.1 - ABG Interpretation ABG results: ABG ABG pH 7.38 pH Units (7.32-7.45) 05/22/16 13:14 ABG pCO2 51 mmHg (35-45) H 05/22/16 13:14 ABG pO2 93 mmHg (85-104) 05/22/16 13:14 ABG O2 Saturation 97 % (95-98) 05/22/16 13:14 PT/INR, D-dimer PT 12.4 Seconds (9.4-12.1) H 05/22/16 13:21 - Attending Attestation I examined this patient and my medical decision-making was reviewed with the Resident Physician. I agree with the documented findings, disposition and treatment plan as described
[2016-05-28] MEDS: predniSONE 20 MG TABLET PO SCH (12:17)
[2016-05-28] MEDS: 0.9 % Sodium Chloride 1,000 ML IVC SCH (17:20)
[2016-05-29] MEDS: *HR* Heparin 5,000 UNIT/ML VIAL SQ SCH ×2 (00:30→09:32)
[2016-05-29] MEDS: Ipratropium/Albuterol Neb 3 ML IH SCH ×3 (03:14→15:25)
[2016-05-29 06:36] LABS: Basophils # 0.1 K/mcL (0.0-0.2); Basophils % 0.8 %; Eosinophils % 0.1 %; Hematocrit 47.2 % (37.5-50.1); Hemoglobin 16.5 g/dL (12.9-16.9); Immature Granulocytes % 5.1 % (0-4); Lymphocytes # 1.7 K/mcL (0.6-4.6); Mean Corpuscular Hemoglobin 31.4 pg (28.0-33.3); Mean Corpuscular Volume 89.7 fL (83.0-100.0); Mean Platelet Volume 10.4 fL (9.4-12.4); Monocytes % 9.7 %; Neutrophils # 6.7 K/mcL (1.6-8.9); Nucleated Red Blood Cells 0.3 /100 WBC (0); Platelet Count 140 K/mcL (140-400); Red Blood Count 5.26 M/mcL (4.19-5.50); Red Cell Distribution Width 13.1 % (11.5-14.5); Segmented Neutrophils % 67.3 %
[2016-05-29 06:58] LABS: BUN/Creatinine Ratio 34 (6-26); Blood Urea Nitrogen 31 mg/dL (8-26); Calcium 8.7 mg/dL (8.6-10.8); Carbon Dioxide 26 mEq/L (19-29); Chloride 101 mEq/L (98-109); Glucose 143 mg/dL (70-99); Osmolality,Calculated 289 (280-300); Potassium 4.2 mEq/L (3.5-4.5); Sodium 135 mEq/L (136-145); eGFR For African Americans > 60 (> 60); eGFR For Non-African Americans > 60 (> 60)
[2016-05-29 07:08] LABS: Platelet Estimate Normal (Normal)
[2016-05-29] MEDS: Azithromycin 250 MG TABLET PO SCH (09:30)
[2016-05-29] MEDS: Gabapentin 300 MG CAPSULE PO SCH (09:31)
[2016-05-29] MEDS: hydroCHLOROthiazide 25 MG TABLET PO SCH (09:33)
[2016-05-29] MEDS: predniSONE 20 MG TABLET PO SCH (09:34)
[2016-05-29] MEDS: *HR* OxyCODONE Immed Rel 5 MG TABLET PO PRN (09:40)
[2016-05-29] MEDS: Budesonide/Formoterol 160/4.5 MDI IH SCH (10:08)
[2016-05-29] MEDS: Tiotropium 18 MCG inhalation IH SCH (10:08)
[2016-05-29 11:33] VITALS: BP 102/66
--- NOTE | 2016-05-29 12:01 | Discharge Summary ---
Date of Encounter: 05/29/16 Time of Encounter: 11:57 - Discharge Diagnosis (1) Acute and chronic respiratory failure ([id number]) Priority: Primary Status: Acute Qualifiers: Respiratory failure complication: hypoxia and hypercapnia Qualified Code(s) : J96.21 - Acute and chronic respiratory failure with hypoxia; J96.22 - Acute and chronic respiratory failure with hypercapnia (2) Acute exacerbation of chronic obstructive airways disease Priority: Primary Status: Acute (3) ANGY (acute kidney injury) Priority: Primary Status: Resolved (4) HTN (hypertension) Priority: Secondary Status: Chronic Qualifiers: Hypertension type: essential hypertension Qualified Code(s): I10 - Essential (primary) hypertension - Discharge Medications Prescriptions: Atorvastatin [Lipitor] 20 mg PO HS #30 tablet Budesonide/Formoterol 160/4.5 [Symbicort 160/4.5] 2 puff IH BIDR #2 inhaler Levalbuterol [Xopenex INH] 1 puff IH Q4H PRN #2 inhaler PRN Reason: sob PredniSONE 10 mg PO DAILY #21 tablet Umeclidinium [place] [Incruse Ellipta] 62.5 mcg IH DAILY #30 blst.w.dev Home Medications: Omeprazole [PriLOSEC] 20 mg PO BID 11/14/15 [History] Oxycodone HCl/Acetaminophen [Percocet 5-325 mg Tablet] 5 - 325 mg PO DAILY 11/13 [History] Gabapentin [Neurontin] 600 mg PO DAILY 11/15/15 [History] Haloperidol [Haldol] 5 mg PO BID 11/15/15 [History] Potassium Chloride [Klor-Con M15] 10 meq PO DAILY 11/15/15 [History] Pravastatin Sodium [Pravachol] 40 mg PO DAILY 11/15/15 [History] Quetiapine Fumarate [Seroquel] 400 mg PO DAILY 11/15/15 [History] Lisinopril [Zestril] 5 mg PO DAILY 05/22/16 [History] Atorvastatin [Lipitor] 20 mg PO HS #30 tablet 05/29/16 [Rx] Budesonide/Formoterol 160/4.5 [Symbicort 160/4.5] 2 puff IH BIDR #2 inhaler 08/10 [Rx] Levalbuterol [Xopenex INH] 1 puff IH Q4H PRN #2 inhaler 05/29/16 [Rx] PredniSONE 10 mg PO DAILY #21 tablet 05/29/16 [Rx] Umeclidinium [place] [Incruse Ellipta] 62.5 mcg IH DAILY #30 blst.w.dev [Rx] Allergies/Adverse Reactions: Allergies No Known Allergies Allergy (Verified 05/22/16 18:53) Date of admission: 05/23/16 11:53 Primary care physician: Jem Le MD Consults: 05/24/16 11:26 Consult to Respiratory Therapy [CONS] Routine Reason for Consult: induced sputum sample please, thanks. Call Completed: No 05/26/16 12:01 Consult to Pulmonology [CONS] Routine Consulting Provider: [facility] [place] Reason for Consult: COPD exacerbation. +entero/rhinovirus, on Azithro and Rocephin and 60mg q8 IV Solu-Medrol. HD 4. Only mild improvement since admission. Call Completed: No Discharging clinician: Lyly Mccarty Anticipated date of discharge: 05/29/16 - Patient Status Disposition: Home Health Service Condition: Fair Functional capacity at discharge: independent ambulation Overall status at discharge: patient is back to baseline - Discharge Instructions Instructions: Prednisone (By mouth), Atorvastatin (By mouth), Tiotropium (By breathing), Umeclidinium/Vilanterol (By breathing), Acute Respiratory Distress Syndrome (DC), Chronic Obstructive Pulmonary Disease (DC), Chronic Hypertension (DC), Cigarette Smoking and Your Health, [place] (GEN) Follow Up With: Jem Le MD [Primary Care Provider] - 06/05/16 11:00 am - Diet and Activity Activity: resume usual activities as tolerated Diet: advance to your usual diet Interval History: Mr. Esqueda is a 55 year old male with a past medical history of COPD not oxygen dependent, HTN, s/p BL distal foot amputation, tobacco use, psychiatric disorders, drug abuse 5 years ago (cocaine and xanax). Comes to the emergency room complaining of severe shortness of breath that has been getting worse for the past 2 days. He states he began having dyspnea with exertion two days ago and it has been getting progressively worse. He has a chronic cough, but it has gotten worse the past two days with being productive of white phlegm. It has progressed to where he now has dyspnea at rest. He is also complaining of some mild substernal chest pain that is worse with coughing and he rates it 7/ 10 with cough and 5/10 at rest. It does not radiate. It has been a constant dull ache for the past two days. He is prescribed COPD puffers but does not use them until he thinks he needs to. He felt like he was getting a cold and having chest congestion a few days ago as well. He states his mother, whom he lives with in her home who is a non-smoker also developed a cold a few days ago. He was last hospitalized about 6 months ago for the same thing, difficulty breathing. He denies any fevers, diaphoresis, shaking chills, nausea/vomiting/ diarrhea. No leukocytosis or fevers. He is tachycardic and tachypneic. O2 saturation is currently 90% on 4L NC. AB.38/51/93/30.2 In the ED he received DuoNebs x 1, and one dose of 125 mg Solu-Medrol IV. Hospital course: Patient was admitted for acute on chronic respiratory failure with hypoxia secondary to acute COPD exacerbation. He was treated with IV steroids, BiPAP was initially ordered, monitoring compliance is an issue with this patient. Respiratory panel revealed entero/rhino virus. Droplet precautions ordered.Chest CT showed Ground glass opacities, likely d/t inflammatory/ infectious process located in right upper lobe/left upper lobe. pulmonary was consulted, recommneded some adjustment in his breathing treatments. Also continued IV azithromycin for COPD exacerbation along with duo nebs which was completed for 5 days. He improved gradually with above treatment, is saturating above 90% on 2 L nasal cannula. His IV steroids was gradually tapered and changed to oral prednisone. He is being discharged today to [facility] on tapering doses of oral steroid in stable condition. Time spent discussing smoking cessation with patient: more than 10 minutes - Time Spent with Patient Total time spent providing and/or coordinating discharge services: Greater than 30 minutes - Constitutional Vitals: Temp Pulse Resp BP Pulse Ox 98 F 75 18 102/66 92 L 05/29/16 07:36 05/29/16 11:27 05/29/16 11:27 05/29/16 11:27 05/29/16 11:27 General appearance: Present: cooperative, A&O X 3, pleasant, obese Exam: General appearance: not in any distress Eyes: nonicteric Auscultation: bilateral: no wheezing or creptns. Cardiovascular: regular rate and rhythm Gastrointestinal: soft, non-tender Integumentary: normal Extremities: no cyanosis, no edema Musculoskeletal: other (Right lower extremity status post amputation)
--- NOTE | 2016-05-29 12:19 | Physician Discharge Referral ---
Home Health/Hosp Referral Info Transfer to: Home Health Attending Provider: bryn guardado - Diagnosis (1) Acute and chronic respiratory failure ([id number]) Status: Acute (2) Acute exacerbation of chronic obstructive airways disease Status: Acute (3) ANGY (acute kidney injury) Status: Resolved (4) HTN (hypertension) Status: Chronic - Respiratory Orders Oxygen / L per min (2) Smoking Cessation: Smoking cessation has been advised. For more information, call the [employer] Tobacco Quit Line at 8-578-WERH-NOW. - Diet/Nutrition Diet/Nutrition Orders: Regular - Activity Activity Orders: Up ad juan, Ambulate - Services Needed Following services are medically necessary services: Nursing, Home Health Aide, Physical Therapy, Occupational Therapy - Transfer Medications Prescriptions: Atorvastatin [Lipitor] 20 mg PO HS #30 tablet PredniSONE 10 mg PO DAILY #21 tablet Tiotropium [Spiriva] 18 mcg IH DAILY@0700 #30 inh Home Medications: Omeprazole [PriLOSEC] 20 mg PO BID 11/14/15 [History] Oxycodone HCl/Acetaminophen [Percocet 5-325 mg Tablet] 5 - 325 mg PO DAILY 11/13 [History] Gabapentin [Neurontin] 600 mg PO DAILY 11/15/15 [History] Haloperidol [Haldol] 5 mg PO BID 11/15/15 [History] Potassium Chloride [Klor-Con M15] 10 meq PO DAILY 11/15/15 [History] Pravastatin Sodium [Pravachol] 40 mg PO DAILY 11/15/15 [History] Quetiapine Fumarate [Seroquel] 400 mg PO DAILY 11/15/15 [History] Lisinopril [Zestril] 5 mg PO DAILY 05/22/16 [History] Atorvastatin [Lipitor] 20 mg PO HS #30 tablet 05/29/16 [Rx] PredniSONE 10 mg PO DAILY #21 tablet 05/29/16 [Rx] Tiotropium [Spiriva] 18 mcg IH DAILY@0700 #30 inh 05/29/16 [Rx] Allergies/Adverse Reactions: Allergies No Known Allergies Allergy (Verified 05/22/16 18:53) Certification: Further, I certify that my clinical findings support that this patient is homebound (i.e. absences from home require considerable and taxing effort and are for medical reasons or sabianist services or infrequently or short duration when for other reasons) because: Homebound Reason: Patient requires assistance of a person or device to safely leave home Attestation: My signature below is to certify that this patient is under my care and that I, or nurse practitioner, or a physician's assistant professor of forestry working with me, has a face-to -face encounter with this patient.
== END 2016-05-29 18:08 | disposition home health service (06) | DRG 190 ==
LOC: 2NENU 12:41 → EMEROO 12:41 → SUATTDRO 17:43 → 2NENU 18:13 → SUATTDRO 05-23 11:53
PROVIDERS: ADMIT Internal Medicine; ATTEND Internal Medicine

== ENCOUNTER 2016-10-12 00:39 | Observation (INO) ==
[2016-10-12] MEDS ORDERED: Ipratropium/Albuterol Neb 3 ML IH ONE (00:54)
[2016-10-12] MEDS ORDERED: methylPREDNISolone 125 MG/2 ML VIAL IVP ONE (01:08)
[2016-10-12 01:16] LABS: Hematocrit 51.4 % (37.5-50.1); Hemoglobin 16.6 g/dL (12.9-16.9); Immature Granulocytes % 0.3 % (0-4); Lymphocytes % 2.7 %; Mean Corpuscular HGB Conc 32.3 g/dL (31.6-35.5); Mean Corpuscular Hemoglobin 30.1 pg (28.0-33.3); Mean Corpuscular Volume 93.1 fL (83.0-100.0); Monocytes % 4.6 %; Platelet Count 166 K/mcL (140-400); Red Blood Count 5.52 M/mcL (4.19-5.50); Red Cell Distribution Width 14.1 % (11.5-14.5); Segmented Neutrophils % 92.3 %
[2016-10-12 01:17] LABS: Basophils % 0.1 %; Lymphocytes # 0.3 K/mcL (0.6-4.6); Monocytes # 0.5 K/mcL (0.0-1.3); Neutrophils # 9.1 K/mcL (1.6-8.9)
[2016-10-12 01:18] LABS: VBG HCO3 33.1 mEq/L (21-27); VBG PH 7.23 pH Units (7.32-7.42)
[2016-10-12 01:33] LABS: Alanine Aminotransferase 12 Units/L (0-55); Albumin 3.7 g/dL (3.5-5.0); Albumin/Globulin Ratio 1.1 (1.1-2.2); Alkaline Phosphatase 89 Units/L (38-126); Aspartate Amino Transferase 13 Units/L (5-34); BUN/Creatinine Ratio 6 (6-26); Bilirubin,Direct 0.1 mg/dL (0.0-0.5); Bilirubin,Indirect 0.3 mg/dL (0.0-1.2); Bilirubin,Total 0.4 mg/dL (0.2-1.2); Blood Urea Nitrogen 7 mg/dL (8-26); Calcium 9.1 mg/dL (8.6-10.8); Carbon Dioxide 29 mEq/L (19-29); Chloride 102 mEq/L (98-109); Glucose 182 mg/dL (70-99); Osmolality,Calculated 295 (280-300); Sodium 141 mEq/L (136-145); Total Protein 7.2 g/dL (6.0-8.3); eGFR For African Americans > 60 (> 60); eGFR For Non-African Americans > 60 (> 60)
[2016-10-12 01:34] LABS: Globulin 3.5 g/dL (2.4-3.5)
[2016-10-12] MEDS ORDERED: Furosemide 40 MG/4 ML VIAL IVP ONE (01:48)
[2016-10-12] MEDS ORDERED: Nitroglycerin 1 INCH/GM PACKET TP ONE (01:48)
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
[2016-10-12 02:31] LABS: VBG HCO3 29.4 mEq/L (21-27); VBG PH 7.36 pH Units (7.32-7.42)
[2016-10-12] MEDS ORDERED: *HR* Morphine 2 MG/ML SYRINGE IVP PRN (05:02)
[2016-10-12] MEDS ORDERED: Naloxone 0.4 MG/ML INJ IVP PRN (05:02)
[2016-10-12] MEDS ORDERED: Ondansetron 4 MG/2 ML VIAL IVP PRN (05:02)
--- NOTE | 2016-10-12 05:10 | Internal Med History&Physical ---
Date of Encounter: 10/12/16 Time of Encounter: 04:45 Assessment and Plan (1) Acute respiratory failure with hypoxia Current visit: Yes Status: Acute unclear etiology. Likely secondary to flash interstitial edema? Chest XRay suggestive of interstitial edema, chronic right hemidiaphragm elevation. Received a dose of IV Lasix in the ER and has been on BiPAP support, currently saturating well on nasal cannula; wean down FiO2 as tolerated. Will use PRN Lasix. Check 2D Echocardiogram. BNP is noted to be within normal limits; D-dimer is significantly elevated; will get CTA chest to r/o PE and better evaluate lungs. (2) Pulmonary edema Current visit: Yes Status: Acute unclear etiology. F/up Echocardiogram and CTA chest; plan as above; Qualifiers: Chronicity: acute Qualified Code(s): J81.0 - Acute pulmonary edema (3) COPD (chronic obstructive pulmonary disease) Current visit: Yes Status: Chronic Continue PRN bronchodilators and supplemental O2 as tolerated; Qualifiers: COPD type: unspecified COPD Qualified Code(s): J44.9 - Chronic obstructive pulmonary disease, unspecified (4) Tobacco abuse Current visit: Yes Status: Chronic Smoking cessation d/w patient; he has been trying to quit, tried Chantix; will give PRN Nicotine patch in the hospital; (5) HTN (hypertension) Current visit: Yes Status: Chronic Qualifiers: Hypertension type: essential hypertension Qualified Code(s): I10 - Essential (primary) hypertension (6) Amputation foot, bilat Current visit: Yes Status: Chronic Qualifiers: Encounter type: subsequent encounter Qualified Code(s): S98.911D - Complete traumatic amputation of right foot, level unspecified, subsequent encounter; S98.912D - Complete traumatic amputation of left foot, level unspecified, subsequent encounter Internal Medicine - H&P: HPI Chief complaint: Shortness of breath Admitted From: Emergency Dept Plans for Post Hospital Care: Home History of present illness: Mr. Esqueda is a 56 year old male with h/o- COPD presents with c/o- worsening shortness of breath. Patient has slurred speech at baseline and is very difficult to understand. He reports back pain after sustaining a mechanical fall about 3-4 days ago. He further has new sudden onset shortness of breath, worse with exertion, not relieved with his breathing treatments, associated with dry cough. No chest pain, palpitations, dizziness or syncope, leg swelling , fever/chills. Past Med Surg Social Fam HX - Past Medical History Medical history: COPD, GERD, hyperlipidemia, hypertension, other Psychiatric history: anxiety, depression, other - Past Surgical History Surgical History: other - Social History Smoking Status: Current every day smoker Packs per day: 8 cigarettes per day Smokeless Tobacco Status: No Alcohol use: none Drug use: marijuana Occupational status: disabled Current living situation: Home, With Family Activity Level: Independent ambulation Recent Out of Country Travel Within the Last 8 Weeks: No - Family History Father Family Member Ethnicity: Non- Living Status: Mother Living Status: Still Living Hx Family Cancer: Yes (BREAST) Internal Medicine - H&P: Meds Omeprazole [PriLOSEC] 20 mg PO BID 11/14/15 [History] Oxycodone HCl/Acetaminophen [Percocet 5-325 mg Tablet] 5 - 325 mg PO DAILY 11/13 [History] Gabapentin [Neurontin] 600 mg PO DAILY 11/15/15 [History] Haloperidol [Haldol] 5 mg PO BID 11/15/15 [History] Potassium Chloride [Klor-Con M15] 10 meq PO DAILY 11/15/15 [History] Pravastatin Sodium [Pravachol] 40 mg PO DAILY 11/15/15 [History] Quetiapine Fumarate [Seroquel] 400 mg PO DAILY 11/15/15 [History] Lisinopril [Zestril] 5 mg PO DAILY 05/22/16 [History] Atorvastatin [Lipitor] 20 mg PO HS #30 tablet 05/29/16 [Rx] Budesonide/Formoterol 160/4.5 [Symbicort 160/4.5] 2 puff IH BIDR #2 inhaler 08/10 [Rx] Levalbuterol [Xopenex INH] 1 puff IH Q4H PRN #2 inhaler 05/29/16 [Rx] Umeclidinium [place] [Incruse Ellipta] 62.5 mcg IH DAILY #30 blst.w.dev [Rx] predniSONE [PredniSONE] 10 mg PO DAILY #21 tablet 05/29/16 [Rx] Albuterol Sulfate [Albuterol Inhaler] 1 puff IH Q6HR #1 hfa.aer.ad 07/25/16 [Rx] predniSONE [PredniSONE] 40 mg PO DAILY #14 tablet 07/25/16 [Rx] Allergies No Known Allergies Allergy (Verified 07/25/16 15:09) All Systems PM: A 10-system review of systems was performed and is negative for pertinent findings except as documented above in the HPI. - Constitutional Constitutional: no chills, no fever(s), no night sweats - EENT Eyes: no change in vision, no discharge, no pain, no photophobia Ears: no ear discharge, no ear pain, no tinnitus Nose, mouth and throat: no dysphagia, no nasal discharge, no neck pain, no sore throat - Cardiovascular Cardiovascular ROS IM: dyspnea, dyspnea on exertion - Respiratory Respiratory: cough - Gastrointestinal Gastrointestinal: no abdominal pain, no diarrhea, no hematemesis, no hematochezia, no melena, no nausea, no vomiting - Musculoskeletal Musculoskeletal ROS IM: no numbness, no tingling - Integumentary Integumentary IM: no rash, no unusual bruising - Neurological Neurological ROS: no confusion, no convulsions, no focal weakness, no numbness, no tingling, no tremor(s) - Hematologic/Lymphatic Hematologic/Lymphatic: no easy bruising - Constitutional Vitals: Temp Pulse Resp BP Pulse Ox 97.9 F 110 30 114/84 95 10/12/16 04:32 10/12/16 04:32 10/12/16 04:32 10/12/16 04:32 10/12/16 04:32 General appearance: Present: A&O X 3, answers questions appropriately - Respiratory Respiratory exam: Present: rales (faint rales at right base). Absent: accessory muscle use, rhonchi, wheezes - Cardiovascular Cardiovascular exam: Present: RRR, +S1, +S2, tachycardia. Absent: diastolic murmur, gallop, rubs, systolic murmur - GI/Abdominal GI/Abdominal exam: Present: normal bowel sounds, soft, no peritoneal signs. Absent: distended, tenderness - Extremities Exam Extremities exam: Present: full ROM, normal inspection (s/p B/L distal foot amputation), warm, radial pulses palpable and symetrical. Absent: calf tenderness, cyanotic, pedal edema - Neurological Exam Neurological exam: Present: CN II-XII intact, oriented X3, no focal deficits ( muffled and garbled speech at baseline). Absent: pronater drift, facial droop, speech deficit - Skin Skin exam: Present: dry, intact Internal Med - H&P Results - Labs CBC & Chem 7: 10/12/16 01:05 10/12/16 01:05 - EKG Data -: EKG Interpreted by Myself EKG shows normal: sinus rhythm Rate: tachycardia
[2016-10-12] MEDS: *HR* OxyCODONE Immed Rel 5 MG TABLET PO PRN ×3 (05:46→20:45)
[2016-10-12] MEDS: *HR* Heparin 5,000 UNIT/ML VIAL SQ SCH ×2 (05:47→18:18)
[2016-10-12 05:59] LABS: Hemoglobin 15.7 g/dL (12.9-16.9); Mean Corpuscular HGB Conc 33.4 g/dL (31.6-35.5); Mean Corpuscular Hemoglobin 30.8 pg (28.0-33.3); Mean Corpuscular Volume 92.3 fL (83.0-100.0); Mean Platelet Volume 10.5 fL (9.4-12.4); Platelet Count 150 K/mcL (140-400); Red Blood Count 5.09 M/mcL (4.19-5.50); Red Cell Distribution Width 14.1 % (11.5-14.5)
[2016-10-12 06:07] LABS: BUN/Creatinine Ratio 8 (6-26); Blood Urea Nitrogen 9 mg/dL (8-26); Calcium 8.7 mg/dL (8.6-10.8); Carbon Dioxide 28 mEq/L (19-29); Chloride 99 mEq/L (98-109); Glucose 268 mg/dL (70-99); Osmolality,Calculated 296 (280-300); Potassium 4.1 mEq/L (3.5-4.5); Sodium 139 mEq/L (136-145); eGFR For African Americans > 60 (> 60); eGFR For Non-African Americans > 60 (> 60)
[2016-10-12 06:09] LABS: Magnesium 1.9 mg/dL (1.6-2.6); Phosphorous 1.3 mg/dL (2.3-4.7)
[2016-10-12 06:33] LABS: Lymphocytes # 0.5 K/mcL (0.6-4.6); Neutrophils # 11.9 K/mcL (1.6-8.9)
[2016-10-12 06:34] LABS: Platelet Estimate Normal (Normal)
[2016-10-12] MEDS: Ipratropium/Albuterol Neb 3 ML IH SCH ×4 (08:01→20:48)
[2016-10-12] MEDS: Budesonide/Formoterol 160/4.5 MDI IH SCH ×2 (08:01→20:48)
[2016-10-12] MEDS ORDERED: NON-FORMULARY MEDICATION 1 EACH EACH (Quetiapine Fumarate [Seroquel] 400 MG) PO SCH (09:00)
--- NOTE | 2016-10-12 10:22 | Internal Med Progress Note ---
<Robert Ware - Last Filed: 10/12/16 13:58> Date of Encounter: 10/12/16 Time of Encounter: 09:45 - Assessment and plan (1) Acute respiratory failure with hypoxia Current Visit: Yes Status: Acute Assessment and plan: - Significant shortness of breath with Os sat 84% on initial presentation. - Likely secondary to flash pulmonary edema in the setting of COPD - Respiratory status improves after Lasix 40 mg IV x1 and BiPAP. - Patient is currently on nasal cannula. - D-dimer elevated at 1136 but CTA chest found no evidence of PE. - PRN Lasix for pulmonary edema. Will also obtain echocardiogram to evaluate possible CHF. - Continue Symbicort, bronchodilators and supplemental oxygen for COPD. (2) Pulmonary edema Current Visit: Yes Status: Acute Assessment and plan: - CXR on admission showed acute pulmonary interstitial edema. - PRN Lasix for pulmonary edema. Will also obtain echocardiogram to evaluate possible CHF. - Strict I&O and daily weight. Qualifiers: Chronicity: acute Qualified Code(s): J81.0 - Acute pulmonary edema (3) COPD (chronic obstructive pulmonary disease) Current Visit: Yes Status: Chronic Assessment and plan: - Continue Symbicort, bronchodilators and supplemental oxygen. Qualifiers: COPD type: unspecified COPD Qualified Code(s): J44.9 - Chronic obstructive pulmonary disease, unspecified (4) Hilar mass Current Visit: Yes Status: Suspected Assessment and plan: - Chest CTA found persistent elevation of right hemidiaphragm with moderate RLL and RML atelectasis but cannot exclude underlying right hilar mass. - Patient is instructed to follow up with pulmonology outpatiently for further evaluation after discharge. (5) HTN (hypertension) Current Visit: Yes Status: Chronic Assessment and plan: - BP within normal range. - Continue current antihypertensive regimen. Qualifiers: Hypertension type: essential hypertension Qualified Code(s): I10 - Essential (primary) hypertension (6) Tobacco abuse Current Visit: Yes Status: Chronic Assessment and plan: - PRN nicotine patch. (7) Amputation foot, bilat Current Visit: Yes Status: Chronic Assessment and plan: - PT/OT consulted. Qualifiers: Encounter type: subsequent encounter Qualified Code(s): S98.911D - Complete traumatic amputation of right foot, level unspecified, subsequent encounter; S98.912D - Complete traumatic amputation of left foot, level unspecified, subsequent encounter (8) Depressed Current Visit: No Status: Chronic Assessment and plan: - Continue home dose Seroquel. Qualifiers: Depression Type: unspecified Qualified Code(s): F32.9 - Major depressive disorder, single episode, unspecified - Subjective Interval history: This note is not for billing purpose. Per nurse, patient' respiratory status improves overnight as he weaned off from BiPAP and currently on nasal cannula. Patient was seen and examined this morning. Patient reports breathing better compared to last night. Patient denies chest pain/discomfort, palpitation, lightheadedness, syncope, fever, chills, nausea, vomiting, diarrhea. Patient reports no home oxygen use. - Constitutional Vitals: Temp Pulse Resp BP Pulse Ox 98.5 F 97 18 110/78 96 10/12/16 06:50 10/12/16 06:50 10/12/16 08:01 10/12/16 06:50 10/12/16 08:01 General appearance: Present: A&O X 3, answers questions appropriately - Head Head exam: Present: atraumatic, normocephalic - Eye Eye exam: Present: EOMI, PERRL, conjuntiva pink, sclera anicteric - Neck Neck exam general surgery: Present: supple, trachea midline. Absent: lymphadenopathy - Respiratory Respiratory exam: Present: wheezes. Absent: accessory muscle use, rales, rhonchi - Cardiovascular Cardiovascular exam: Present: +S1, +S2, tachycardia. Absent: diastolic murmur, gallop, rubs, systolic murmur - GI/Abdominal GI/Abdominal exam: Present: normal bowel sounds, soft, no peritoneal signs. Absent: distended, tenderness - Extremities Exam Extremities exam: Present: warm, radial pulses palpable and symetrical. Absent : calf tenderness, cyanotic, pedal edema - Neurological Exam Neurological exam: Present: CN II-XII intact, oriented X3, no focal deficits. Absent: pronater drift, facial droop, speech deficit - Skin Skin exam: Present: dry, intact, warm Internal Medicine: Result - Labs CBC & Chem 7: 10/12/16 05:39 10/12/16 05:39 Labs: Short CBC 10/12/16 Range/Units 05:39 WBC 12.4 H (4.3-11.1) K/mcL Hgb 15.7 (12.9-16.9) g/dL Hct 47.0 (37.5-50.1) % Plt Count 150 (140-400) K/mcL Neutrophils # 11.9 H (1.6-8.9) K/mcL BMP 10/12/16 05:39 Sodium 139 Potassium 4.1 Chloride 99 Carbon Dioxide 28 BUN 9 Creatinine 1.10 Glucose 268 H Calcium 8.7 Cardiac Enzymes 10/12/16 Range/Units 05:39 Troponin I 0.03 (0-0.03) ng/mL - ABG Interpretation ABG results: PT/INR, D-dimer D-Dimer 1136 ng/mLFEU (0-500) H 10/12/16 01:02 - Impressions Impressions Chest CTA 10/12/16 08:00 IMPRESSION: No acute pulmonary emboli, aortic dissection or aneurysm. Persistent elevation of the right hemidiaphragm with moderate right lower lobe and right middle lobe atelectasis. An underlying right hilar mass is not excluded. The findings were sent to the Radiology Results Communication Center at 9:05 am on 10/12/2016to be communicated to a licensed caregiver. D/ / Isreal Lombardo MD / Isreal Lombardo MD Interpreting Provider: Isreal Lombardo MD Consult Discharge Plan - Plan Instructions: Acute Respiratory Distress Syndrome (DC), Acute Respiratory Distress Syndrome (GEN), Chronic Obstructive Pulmonary Disease (DC), Chronic Hypertension (DC), Cigarette Smoking and Your Health, Sports Intern (GEN), Chronic Hypertension, Sports Intern (GEN) Referrals: Jem Le MD [Primary Care Provider] - <Kayode Norman - Last Filed: 10/12/16 16:18> Date of Encounter: 10/12/16 - Constitutional Vitals: Temp Pulse Resp BP Pulse Ox 98.5 F 91 16 125/83 92 10/12/16 11:09 10/12/16 11:09 10/12/16 11:55 10/12/16 11:09 10/12/16 11:55 Internal Medicine: Result - Labs CBC & Chem 7: 10/12/16 05:39 10/12/16 05:39 Labs: Short CBC 10/12/16 Range/Units 05:39 WBC 12.4 H (4.3-11.1) K/mcL Hgb 15.7 (12.9-16.9) g/dL Hct 47.0 (37.5-50.1) % Plt Count 150 (140-400) K/mcL Neutrophils # 11.9 H (1.6-8.9) K/mcL BMP 10/12/16 05:39 Sodium 139 Potassium 4.1 Chloride 99 Carbon Dioxide 28 BUN 9 Creatinine 1.10 Glucose 268 H Calcium 8.7 Cardiac Enzymes 10/12/16 10/12/16 Range/Units 05:39 11:16 Troponin I 0.03 0.01 (0-0.03) ng/mL - ABG Interpretation ABG results: PT/INR, D-dimer D-Dimer 1136 ng/mLFEU (0-500) H 10/12/16 01:02 - Impressions Impressions Chest CTA 10/12/16 08:00 IMPRESSION: No acute pulmonary emboli, aortic dissection or aneurysm. Persistent elevation of the right hemidiaphragm with moderate right lower lobe and right middle lobe atelectasis. An underlying right hilar mass is not excluded. The findings were sent to the Radiology Results Communication Center at 9:05 am on 10/12/2016to be communicated to a licensed caregiver. D/ / Isreal Lombardo MD / Isreal Lombardo MD Interpreting Provider: Isreal Lombardo MD - Attending Attestation I examined this patient and my medical decision-making was reviewed with the Resident Physician on 10/12/16. I agree with the documented findings, disposition and treatment plan as described except to the extent set forth below. Mr. Esqueda was admitted earlier today with acute hypoxia related to pulmonary edema. He is moderate to high risk due to potential for worsening respiratory status. Mr. Esqueda feels somewhat better. He is off bipap now. He still coughing and has some dyspnea but feels he is progressing. Exam Alert. Comfortable Heart reg Lungs with scant wheeze I/P 1Hypoxia 2. Pulmonary edema Further diagnoses and plan as above.
[2016-10-12] MEDS: Gabapentin 300 MG CAPSULE PO SCH (11:41)
--- NOTE | 2016-10-12 14:13 | ECHO - Doppler Report ---
Echocardiogram Name: Cristofer Esqueda Date of Study: 10/12/2016 Date: 1960 Ht: 69.7 in Medical Record#: [id number] Age: 56 Wt: 224.9 lb Gender: Male BSA: 2.19 Order #: [id number] Location: [facility] Room #: 2NE26 Reading Physician: Nayeli Feliciano DO Secondary Set Up Man: Janee Sarkar Ordering Physician: Alley June MD Primary Physician: Jem Le MD Indications: Shortness of breath, Tachycardia Impressions: Technically challenging study with suboptimal windows. LV systolic function appears normal in the subcostal view. RV size and function are normal in subcostal view. No significant valvular dysfunction. No pulmonary hypertension. Lack of optimal TR gradient to estimate RVSP. Findings: Study Quality * Technically sub-optimal due to body habitus. No apical views, limited parasternal views, most views were visualized from the subcostal. ECG Findings * Unclear underlying rhythm. Consider sinus/sinus tachycardia. Left Ventricle * Unable to evaluate segmental wall motion due to technical quality. * Indeterminate diastolic function. * LV systolic function appears normal in the subcostal view. Left Atrium * Left atrium is not well visualized. Right Atrium * Right atrium is not well visualized. Aortic Valve * No aortic regurgitation. * No aortic stenosis. * Trileaflet aortic valve. Mitral Valve * No mitral regurgitation. * Normal mitral valve structure as seen in the subcostal view. * No mitral stenosis. Tricuspid Valve * Normal tricuspid valve structure seen in the subcostal view. * Normal tricuspid valve structure. Pulmonic Valve * Pulmonic valve is not well visualized. * No pulmonic stenosis. * No pulmonic regurgitation. Aorta * Not well visualized. IVC * The IVC is not well evaluated. Pulmonary Artery * Pulmonary artery not well visualized. Interatrial Septum * No evidence of PFO by color Doppler. Right Ventricle * RV size and function appear normal in the subcostal view. It is not visualized in other windows. Pericardium * There is no pericardial effusion present. History Hypertension Hypercholesteremia History of Smoking Years 10 Packs 0.5 Family History of CAD 11/20/2015 a Previous Echo was performed. Measurements: BP: 110/ 78 2D Normal Values RVIDd: 3.70 cm <2.7 cm IVSd: .70 cm 0.6 - 1.0 cm LVIDd: 3.90 cm 3.7 - 5.6 cm LVPWd: 1.10 cm 0.6 - 1.1 cm LVIDs: 3.40 cm 1.5 - 3.6 cm AO: 3.10 cm < 4.0 cm LA: 4.20 cm 2.0 - 4.0cm %FS: 12.80 cm >25 % LVOT Diam: 2.10 cm LA volume: 52 Mitral Valve Peak E' Lat David:5.85 cm/s Peak E' Med David:8.97 cm/s Updated by Nayeli Feliciano on 10/12/2016 2:08:45 PM electronically signed on 10/12/2016 2:09:54 PM with status of [employer]: 1=Normal, 2=Hypokinesis, 3=Akinesis, 4=Dyskinesis, 5=Aneurysmal, 6=Hyperkinetic, X=Not Visualized (Blank)=Missing
--- NOTE | 2016-10-12 17:47 | Electrocardiograph Report ---
[address] [address] Test Date: 2016-10-12 Pat Name: Cristofer Esqueda Department: 104 Room: 2NE26 Gender: M Rinkman: : 1960 Requested By: Romario Mariano Order Number: [id number] Reading MD: Eliseo Johnson Measurements Intervals [place] Rate: 119 P: 14 SC: 171 QRS: 50 QRSD: 99 T: 32 QT: 353 QTc: 424 Interpretive Statements SINUS TACHYCARDIA ABNORMAL RHYTHM ECG Electronically Signed On 10-12-2016 17:45:25 EDT by Eliseo Johnson
[2016-10-13] MEDS: Ipratropium/Albuterol Neb 3 ML IH SCH ×7 (00:28→23:54)
[2016-10-13] MEDS: *HR* Heparin 5,000 UNIT/ML VIAL SQ SCH ×4 (00:39→21:04)
[2016-10-13] MEDS: *HR* OxyCODONE Immed Rel 5 MG TABLET PO PRN ×3 (05:29→22:27)
[2016-10-13 05:41] LABS: Basophils % 0.1 %; Hematocrit 40.9 % (37.5-50.1); Immature Granulocytes % 0.6 % (0-4); Lymphocytes # 0.6 K/mcL (0.6-4.6); Lymphocytes % 5.7 %; Mean Corpuscular HGB Conc 33.3 g/dL (31.6-35.5); Mean Corpuscular Hemoglobin 30.7 pg (28.0-33.3); Mean Corpuscular Volume 92.3 fL (83.0-100.0); Mean Platelet Volume 10.9 fL (9.4-12.4); Monocytes # 0.4 K/mcL (0.0-1.3); Monocytes % 4.4 %; Neutrophils # 8.7 K/mcL (1.6-8.9); Platelet Count 120 K/mcL (140-400); Red Blood Count 4.43 M/mcL (4.19-5.50); Segmented Neutrophils % 89.2 %
[2016-10-13 05:46] LABS: Hemoglobin 13.6 g/dL (12.9-16.9)
[2016-10-13 05:52] LABS: BUN/Creatinine Ratio 17 (6-26); Blood Urea Nitrogen 14 mg/dL (8-26); Calcium 8.9 mg/dL (8.6-10.8); Carbon Dioxide 31 mEq/L (19-29); Chloride 98 mEq/L (98-109); Glucose 207 mg/dL (70-99); Osmolality,Calculated 291 (280-300); Sodium 137 mEq/L (136-145); eGFR For African Americans > 60 (> 60); eGFR For Non-African Americans > 60 (> 60)
[2016-10-13] MEDS: Budesonide/Formoterol 160/4.5 MDI IH SCH ×2 (07:57→20:26)
[2016-10-13] MEDS: Gabapentin 300 MG CAPSULE PO SCH (09:08)
[2016-10-13] MEDS: Acetaminophen 325 MG TABLET PO PRN (09:10)
--- NOTE | 2016-10-13 17:08 | Internal Med Progress Note ---
Date of Encounter: 10/13/16 Time of Encounter: 11:00 - Assessment and plan (1) Acute respiratory failure with hypoxia Current Visit: Yes Status: Acute Assessment and plan: - Overall seems to be doing somewhat better. He is off bipap but still on oxygen. Will wean off as able. Chest CTA showed elevated R hemidiaphragm. Will need further workup when more stable and most likely as outpatient. (2) Pulmonary edema Current Visit: Yes Status: Acute Assessment and plan: - Improved today. Continue to follow and treat as needed. Qualifiers: Chronicity: acute Qualified Code(s): J81.0 - Acute pulmonary edema (3) COPD (chronic obstructive pulmonary disease) Current Visit: Yes Status: Chronic Assessment and plan: - Continue Symbicort, bronchodilators and supplemental oxygen. Qualifiers: COPD type: unspecified COPD Qualified Code(s): J44.9 - Chronic obstructive pulmonary disease, unspecified (4) HTN (hypertension) Current Visit: Yes Status: Chronic Assessment and plan: - BP within normal range. - Continue current antihypertensive regimen. Qualifiers: Hypertension type: essential hypertension Qualified Code(s): I10 - Essential (primary) hypertension (5) Tobacco abuse Current Visit: Yes Status: Chronic Assessment and plan: - PRN nicotine patch. (6) Hilar mass Current Visit: Yes Status: Suspected Assessment and plan: - Chest CTA found persistent elevation of right hemidiaphragm with moderate RLL and RML atelectasis but cannot exclude underlying right hilar mass. - Will arrange outpatient pulmonary appt when pt more stable. - Subjective Interval history: Mr. Esqueda is currently admitted for acute hypoxic respiratory failure related to pulmonary edema. He is moderate to high risk due to potential for worsening respiratory status. Mr. Esqueda is resting comfortably at this time. He is still on oxygen. He denies pain at this time. No fever or chills. Tolerating diet. - Constitutional Vitals: Temp Pulse Resp BP Pulse Ox 97.4 F L 98 16 102/74 99 10/13/16 16:00 10/13/16 16:00 10/13/16 16:00 10/13/16 16:00 10/13/16 16:00 General appearance: Present: A&O X 3, answers questions appropriately - Head Head exam: Present: normocephalic - Eye Eye exam: Present: conjuntiva pink - ENT ENT exam: Present: mucous membranes moist - Respiratory Respiratory exam: Present: rhonchi. Absent: rales, wheezes - Cardiovascular Cardiovascular exam: Present: RRR. Absent: tachycardia - GI/Abdominal GI/Abdominal exam: Present: soft. Absent: mass, tenderness - Extremities Exam Extremities exam: Present: warm - Neurological Exam Neurological exam: Present: alert, oriented X3 - Skin Skin exam: Present: warm. Absent: rash Internal Medicine: Result - Labs CBC & Chem 7: 10/13/16 05:26 10/13/16 05:26 Labs: Short CBC 10/13/16 Range/Units 05:26 WBC 9.8 (4.3-11.1) K/mcL Hgb 13.6 D (12.9-16.9) g/dL Hct 40.9 (37.5-50.1) % Plt Count 120 L (140-400) K/mcL Neutrophils # 8.7 (1.6-8.9) K/mcL BMP 10/13/16 05:26 Sodium 137 Potassium 4.0 Chloride 98 Carbon Dioxide 31 H BUN 14 Creatinine 0.82 Glucose 207 H Calcium 8.9 Cardiac Enzymes 10/12/16 Range/Units 17:55 Troponin I 0.01 (0-0.03) ng/mL - ABG Interpretation ABG results: PT/INR, D-dimer D-Dimer 1136 ng/mLFEU (0-500) H 10/12/16 01:02 Consult Discharge Plan - Plan Instructions: Acute Respiratory Distress Syndrome (DC), Acute Respiratory Distress Syndrome (GEN), Chronic Obstructive Pulmonary Disease (DC), Chronic Hypertension (DC), Cigarette Smoking and Your Health, Scale Reclamation Tender (GEN), Chronic Hypertension, Scale Reclamation Tender (GEN) Referrals: Jem Le MD [Primary Care Provider] -
[2016-10-14] MEDS: Ipratropium/Albuterol Neb 3 ML IH SCH ×6 (04:19→23:08)
[2016-10-14] MEDS: *HR* Heparin 5,000 UNIT/ML VIAL SQ SCH ×3 (05:44→22:45)
[2016-10-14] MEDS: *HR* OxyCODONE Immed Rel 5 MG TABLET PO PRN ×3 (05:44→22:45)
[2016-10-14 05:48] LABS: Hematocrit 40.3 % (37.5-50.1); Hemoglobin 13.3 g/dL (12.9-16.9); Mean Corpuscular Volume 93.9 fL (83.0-100.0); Mean Platelet Volume 10.6 fL (9.4-12.4); Platelet Count 149 K/mcL (140-400); Red Blood Count 4.29 M/mcL (4.19-5.50); Red Cell Distribution Width 14.2 % (11.5-14.5)
[2016-10-14 06:09] LABS: BUN/Creatinine Ratio 21 (6-26); Blood Urea Nitrogen 16 mg/dL (8-26); Calcium 8.8 mg/dL (8.6-10.8); Carbon Dioxide 31 mEq/L (19-29); Chloride 101 mEq/L (98-109); Glucose 94 mg/dL (70-99); Magnesium 1.9 mg/dL (1.6-2.6); Osmolality,Calculated 295 (280-300); Potassium 3.9 mEq/L (3.5-4.5); Sodium 142 mEq/L (136-145); eGFR For African Americans > 60 (> 60); eGFR For Non-African Americans > 60 (> 60)
[2016-10-14] MEDS: Gabapentin 300 MG CAPSULE PO SCH (09:51)
[2016-10-14] MEDS: Budesonide/Formoterol 160/4.5 MDI IH SCH ×2 (11:03→19:37)
--- NOTE | 2016-10-14 13:42 | Internal Med Progress Note ---
Date of Encounter: 10/14/16 Time of Encounter: 11:30 - Assessment and plan (1) Acute respiratory failure with hypoxia Current Visit: Yes Status: Acute Assessment and plan: - Remains on nasal cannula and is dyspneic. Will qualify for home oxygen and arrange in morning if needed. Continue other care as ordered. Anticipate d/c tomorrow morning (2) Pulmonary edema Current Visit: Yes Status: Resolved Assessment and plan: - Improved. Qualifiers: Chronicity: acute Qualified Code(s): J81.0 - Acute pulmonary edema (3) COPD (chronic obstructive pulmonary disease) Current Visit: Yes Status: Chronic Assessment and plan: - Continue Symbicort, bronchodilators and supplemental oxygen. Qualifiers: COPD type: unspecified COPD Qualified Code(s): J44.9 - Chronic obstructive pulmonary disease, unspecified (4) HTN (hypertension) Current Visit: Yes Status: Chronic Assessment and plan: - BP within normal range. - Continue current antihypertensive regimen. Qualifiers: Hypertension type: essential hypertension Qualified Code(s): I10 - Essential (primary) hypertension (5) Tobacco abuse Current Visit: Yes Status: Chronic Assessment and plan: - PRN nicotine patch. (6) Hilar mass Current Visit: Yes Status: Suspected Assessment and plan: - Chest CTA found persistent elevation of right hemidiaphragm with moderate RLL and RML atelectasis but cannot exclude underlying right hilar mass. - Will arrange outpatient pulmonary appt when pt more stable. - Subjective Interval history: Mr. Esqueda is currently admitted for acute hypoxic respiratory failure related to pulmonary edema. He is moderate to high risk due to potential for worsening respiratory status. Mr. Esqueda just brushed his teeth and was off oxygen to go to the bathroom. He feels dyspneic at this time. Oxygen reapplied. No CP. No fever or chills. Concerned about dentist appointment tomorrow. - Constitutional Vitals: Temp Pulse Resp BP Pulse Ox 97.7 F 89 16 113/70 92 10/14/16 06:41 10/14/16 06:41 10/14/16 11:03 10/14/16 06:41 10/14/16 11:03 General appearance: Present: A&O X 3, pleasant, answers questions appropriately - Head Head exam: Present: normocephalic - Eye Eye exam: Present: conjuntiva pink - ENT ENT exam: Present: mucous membranes moist - Respiratory Respiratory exam: Present: decreased breath sounds, CTAB. Absent: rales, respiratory distress, rhonchi, wheezes - Cardiovascular Cardiovascular exam: Present: RRR. Absent: tachycardia - GI/Abdominal GI/Abdominal exam: Present: soft. Absent: tenderness - Extremities Exam Extremities exam: Present: warm - Neurological Exam Neurological exam: Present: alert, no focal deficits - Skin Skin exam: Present: dry, warm. Absent: rash Internal Medicine: Result - Labs CBC & Chem 7: 10/14/16 04:46 10/14/16 04:46 Labs: Short CBC 10/14/16 Range/Units 04:46 WBC 7.1 (4.3-11.1) K/mcL Hgb 13.3 (12.9-16.9) g/dL Hct 40.3 (37.5-50.1) % Plt Count 149 (140-400) K/mcL BMP 10/14/16 04:46 Sodium 142 Potassium 3.9 Chloride 101 Carbon Dioxide 31 H BUN 16 Creatinine 0.78 Glucose 94 Calcium 8.8 - ABG Interpretation ABG results: PT/INR, D-dimer D-Dimer 1136 ng/mLFEU (0-500) H 10/12/16 01:02 Consult Discharge Plan - Plan Instructions: Acute Respiratory Distress Syndrome (DC), Acute Respiratory Distress Syndrome (GEN), Chronic Obstructive Pulmonary Disease (DC), Chronic Hypertension (DC), Cigarette Smoking and Your Health, Addiction Social Worker (GEN), Chronic Hypertension, Addiction Social Worker (GEN) Referrals: Jem Le MD [Primary Care Provider] -
[2016-10-15] MEDS: Ipratropium/Albuterol Neb 3 ML IH SCH ×2 (03:20→07:59)
[2016-10-15] MEDS: *HR* OxyCODONE Immed Rel 5 MG TABLET PO PRN (05:22)
[2016-10-15] MEDS: *HR* Heparin 5,000 UNIT/ML VIAL SQ SCH (05:22)
[2016-10-15 06:57] VITALS: BP 160/109
[2016-10-15] MEDS: Gabapentin 300 MG CAPSULE PO SCH (07:56)
[2016-10-15] MEDS: Acetaminophen 325 MG TABLET PO PRN (07:58)
[2016-10-15] MEDS: Budesonide/Formoterol 160/4.5 MDI IH SCH (07:59)
--- NOTE | 2016-10-15 08:00 | Discharge Summary ---
Addendum entered and electronically signed by Robert Ware DO 10/15/16 08:37: Per daytime and nighttime home oxygen qualification test, patient does not qualify for home oxygen at this time. Original Note: <Robert Ware - Last Filed: 10/15/16 08:16> Date of Encounter: 10/15/16 Time of Encounter: 07:30 - Discharge Diagnosis (1) Acute respiratory failure with hypoxia Priority: Primary Status: Acute (2) Pulmonary edema Priority: Primary Status: Resolved Qualifiers: Chronicity: acute Qualified Code(s): J81.0 - Acute pulmonary edema (3) COPD (chronic obstructive pulmonary disease) Priority: Secondary Status: Chronic Qualifiers: COPD type: unspecified COPD Qualified Code(s): J44.9 - Chronic obstructive pulmonary disease, unspecified (4) Hilar mass Priority: Secondary Status: Suspected (5) HTN (hypertension) Priority: Secondary Status: Chronic Qualifiers: Hypertension type: essential hypertension Qualified Code(s): I10 - Essential (primary) hypertension (6) Tobacco abuse Priority: Secondary Status: Chronic - Discharge Medications Home Medications: Omeprazole [PriLOSEC] 20 mg PO BID 11/14/15 [History] Oxycodone HCl/Acetaminophen [Percocet 5-325 mg Tablet] 5 - 325 mg PO DAILY 11/13 [History] Gabapentin [Neurontin] 600 mg PO DAILY 11/15/15 [History] Potassium Chloride [Klor-Con M15] 10 meq PO DAILY 11/15/15 [History] Pravastatin Sodium [Pravachol] 40 mg PO DAILY 11/15/15 [History] Quetiapine Fumarate [Seroquel] 400 mg PO DAILY 11/15/15 [History] Lisinopril [Zestril] 5 mg PO DAILY 05/22/16 [History] Budesonide/Formoterol 160/4.5 [Symbicort 160/4.5] 2 puff IH BIDR #2 inhaler 08/10 [Rx] Levalbuterol [Xopenex INH] 1 puff IH Q4H PRN #2 inhaler 05/29/16 [Rx] Albuterol Sulfate [Albuterol Inhaler] 1 puff IH Q6HR #1 hfa.aer.ad 03/01/17 [Rx] Umeclidinium [place] [Incruse Ellipta] 1 puff IH DAILY 10/12/16 [History] Allergies/Adverse Reactions: Allergies No Known Allergies Allergy (Verified 07/25/16 15:09) Date of admission: 10/12/16 05:20 Primary care physician: Jem Le MD Consults: 10/12/16 09:55 Consult to Occupational Therapy [CONS] Routine Comment: Evaluate, develop and implement POC Reason for Consult: weakness Consult to Physical Therapy [CONS] Routine Comment: Evaluate, develop and implement POC Reason for Consult: weakness 10/12/16 15:59 Consult to Heating Engineer [CONS] Routine Reason for SW Consult: PT recommending SNF Discharging clinician: Robert Ware Anticipated date of discharge: 10/15/16 - Patient Status Disposition: Home Health Service Condition: Fair Functional capacity at discharge: independent ambulation Overall status at discharge: patient is progressing back to baseline - Discharge Instructions Instructions: Acute Respiratory Distress Syndrome (DC), Chronic Obstructive Pulmonary Disease (DC), Chronic Hypertension (DC), Cigarette Smoking and Your Health, Vascular Surgeon (GEN) Follow Up With: Jem Le MD [Primary Care Provider] - 10/29/16 11:10 am (Within a week) Additional Instructions: Please follow up with your primary care physician Dr. Le within a week regarding your hospitalization for respiratory failure and further work-up for elevated right hemidiaphragm with suspected right hilar mass. Please avoid high salt diet and excessive fluid intake. Please come back to emergency room if you develop significant shortness of breath. - Diet and Activity Activity: increase activity as tolerated Diet: low fat, low cholesterol, low salt diet Hospital course: Mr. Esqueda is a 56 year old male with PMH of COPD (not on home oxygen) and HTN. Patient presented with complaint of worsening shortness of breath with nonproductive cough. In ED, patient was noted to desaturate to 84% on room air. CXR showed acute pulmonary interstitial edema. Patient received one dose of Lasix 40 mg IV and started on BiPAP. Patient was admitted on 10/12/16 for acute hypoxic respiratory failure likely secondary to pulmonary edema. CTA chest found no evidence of PE but persistent elevation of right hemidiaphragm with moderate RLL and RML atelectasis which underlying right hilar mass cannot be excluded. Echocardiogram on 5/19 is technically challenging study with suboptimal window but LV systolic function appears normal in the subcostal view. Patient's respiratory status continues to improve since admission without need of further diuresis. Patient weaned off from BiPAP to nasal cannula and eventually O2 sat 92% & more on room air. PT/OT recommend SNF placement but patient likes to go home instead of SNF. Given patient continues to breath well and remains hemodynamically stable, will discharge patient home with home health service. Patient should follow up with his PCP Dr. Le within a week regarding his hospitalization for respiratory failure and further work-up for elevated right hemidiaphragm with suspected right hilar mass. Patient is recommended to avoid high salt diet and excessive fluid intake. Patient is also instructed to come back to emergency room if he develops significant shortness of breath. Time spent discussing smoking cessation with patient: more than 10 minutes - Time Spent with Patient Total time spent providing and/or coordinating discharge services: Greater than 30 minutes - Constitutional Vitals: Temp Pulse Resp BP Pulse Ox 97.8 F 79 17 160/109 98 10/15/16 06:54 10/15/16 06:54 10/15/16 06:54 10/15/16 06:54 10/15/16 06:54 General appearance: Present: A&O X 3, pleasant, answers questions appropriately - Head Head exam: Present: atraumatic, normocephalic - Eye Eye exam: Present: EOMI, PERRL, conjuntiva pink, sclera anicteric - Neck Neck exam general surgery: Present: supple, trachea midline. Absent: lymphadenopathy - Respiratory Respiratory exam: Present: decreased breath sounds. Absent: accessory muscle use, rales, rhonchi, wheezes - Cardiovascular Cardiovascular exam: Present: RRR, +S1, +S2. Absent: diastolic murmur, gallop, rubs, systolic murmur - GI/Abdominal GI/Abdominal exam: Present: normal bowel sounds, soft, no peritoneal signs. Absent: distended, tenderness - Extremities Exam Extremities exam: Present: warm, radial pulses palpable and symetrical. Absent : calf tenderness, cyanotic, pedal edema - Neurological Exam Neurological exam: Present: CN II-XII intact, oriented X3, no focal deficits. Absent: pronater drift, facial droop, speech deficit - Skin Skin exam: Present: dry, intact, warm <Emerson,Kayode A - Last Filed: 10/15/16 14:34> Date of Encounter: 10/15/16 - Discharge Diagnosis (1) Acute respiratory failure with hypoxia Priority: Primary Status: Acute (2) Pulmonary edema Priority: Primary Status: Resolved Qualifiers: Chronicity: acute Qualified Code(s): J81.0 - Acute pulmonary edema (3) COPD (chronic obstructive pulmonary disease) Priority: Secondary Status: Chronic Qualifiers: COPD type: unspecified COPD Qualified Code(s): J44.9 - Chronic obstructive pulmonary disease, unspecified (4) HTN (hypertension) Priority: Secondary Status: Chronic Qualifiers: Hypertension type: essential hypertension Qualified Code(s): I10 - Essential (primary) hypertension (5) Tobacco abuse Priority: Secondary Status: Chronic (6) Hilar mass Priority: Secondary Status: Suspected Date of admission: 10/12/16 02:43 Primary care physician: Jem Le MD Consults: 10/12/16 09:55 Consult to Occupational Therapy [CONS] Routine Comment: Evaluate, develop and implement POC Reason for Consult: weakness Consult to Physical Therapy [CONS] Routine Comment: Evaluate, develop and implement POC Reason for Consult: weakness 10/12/16 15:59 Consult to Heating Engineer [CONS] Routine Reason for SW Consult: PT recommending SNF Hospital course: Mr. Esqueda is a 56 year old male - Time Spent with Patient Total time spent providing and/or coordinating discharge services: 38min - Constitutional Vitals: Temp Pulse Resp BP Pulse Ox 97.8 F 79 16 160/109 97 10/15/16 06:54 10/15/16 06:54 10/15/16 08:04 10/15/16 06:54 10/15/16 08:04 - Attending Attestation I examined this patient and my medical decision-making was reviewed with the Resident Physician on 10/15/16. I agree with the documented findings, disposition and treatment plan as described except to the extent set forth below. Mr. Esqueda feels good today. He did not qualify for oxygen during day or at night. No further respiratory issues. He is afebrile with stable vitals. Exam Alert. Comfortable Heart reg No wheeze Plan D/C today Follow up with PCP.
--- NOTE | 2016-10-15 08:01 | Physician Discharge Referral ---
Home Health/Hosp Referral Info Transfer to: Home Health Provider in Charge Post Discharge: PCP - Diagnosis (1) Acute respiratory failure with hypoxia Priority: Primary Status: Acute (2) Pulmonary edema Priority: Primary Status: Resolved (3) COPD (chronic obstructive pulmonary disease) Priority: Secondary Status: Chronic (4) Hilar mass Priority: Secondary Status: Suspected (5) HTN (hypertension) Priority: Secondary Status: Chronic (6) Tobacco abuse Priority: Secondary Status: Chronic (7) Amputation foot, bilat Priority: Secondary Status: Chronic (8) Depressed Priority: Secondary Status: Chronic - Respiratory Orders Smoking Cessation: Smoking cessation has been advised. For more information, call the [place] Tobacco Quit Line at 2-474-KPSH-NOW. - Diet/Nutrition Diet/Nutrition Orders: No Added Salt (MYLES), Cardiac - Activity Activity Orders: Ambulate - Services Needed Following services are medically necessary services: Nursing, Physical Therapy, Occupational Therapy - Transfer Medications Home Medications: Omeprazole [PriLOSEC] 20 mg PO BID 11/14/15 [History] Oxycodone HCl/Acetaminophen [Percocet 5-325 mg Tablet] 5 - 325 mg PO DAILY 11/13 [History] Gabapentin [Neurontin] 600 mg PO DAILY 11/15/15 [History] Potassium Chloride [Klor-Con M15] 10 meq PO DAILY 11/15/15 [History] Pravastatin Sodium [Pravachol] 40 mg PO DAILY 11/15/15 [History] Quetiapine Fumarate [Seroquel] 400 mg PO DAILY 11/15/15 [History] Lisinopril [Zestril] 5 mg PO DAILY 05/22/16 [History] Budesonide/Formoterol 160/4.5 [Symbicort 160/4.5] 2 puff IH BIDR #2 inhaler 08/10 [Rx] Levalbuterol [Xopenex INH] 1 puff IH Q4H PRN #2 inhaler 05/29/16 [Rx] Albuterol Sulfate [Albuterol Inhaler] 1 puff IH Q6HR #1 hfa.aer.ad 07/25/16 [Rx] Umeclidinium [place] [Incruse Ellipta] 1 puff IH DAILY 10/12/16 [History] Allergies/Adverse Reactions: Allergies No Known Allergies Allergy (Verified 07/25/16 15:09) Certification: Further, I certify that my clinical findings support that this patient is homebound (i.e. absences from home require considerable and taxing effort and are for medical reasons or christianity services or infrequently or short duration when for other reasons) because: Homebound Reason: Patient requires assistance of a person or device to safely leave home Attestation: My signature below is to certify that this patient is under my care and that I, or nurse practitioner, or a physician's veterinary technician assistant working with me, has a face-to -face encounter with this patient.
== END 2016-10-15 11:15 | disposition home health service (06) ==
LOC: 2NENU 00:39 → EMEROO 00:39 → 2NENU 03:46
PROVIDERS: ADMIT Internal Medicine; ATTEND Internal Medicine